=== PATIENT | female | born 1935 | race Caucasian/White ===

== ENCOUNTER 2016-10-27 14:45 | Emergency (ER) | payer BC, MEDICARE, OTHER ==
[~2016-10-27 14:45] MED LIST: DIAZ5 PO
[2016-10-27 14:55] VITALS: BP 166/74; PULSE 83; RESP 20; TEMP 98.5; O2SAT 97
--- NOTE | 2016-10-27 15:23 | PD ---
HPI Chief Complaint: Chest Pain Time Seen by Provider: 15:09 Travel History International Travel<30 days: No Contact w/Intl Traveler<30days: No Traveled to known affect area: No History of Present Illness HPI This patient complains of chest pain. She's had intermittent spells for the last 2 days. Last 2-3 minutes and resolves. It is not exertional. Location is middle of the sternum rating toward his shoulder. He reports she had a heart catheterization 7 months ago in [place] and follows with Dr. Posadas regularly. She does not have any stents. Symptom severity is moderate. No alleviating factors. PFSH Past Medical History Anxiety: Yes Diminished Hearing: No Immunizations Current: Yes Menopausal: Yes Social History Alcohol Use: Yes (SOCAIL/WEEKENDS) Tobacco Use: No Substance Use: No Allergies-Medications (Allergen,Severity, Reaction): Coded Allergies: No Known Allergies (Unverified , 10/27/16) Reported Meds & Prescriptions Reported Meds & Active Scripts Active No Active Prescriptions or Reported Medications Review of Systems General / Constitutional: No: Fever Eyes: No: Visual changes HENT: No: Headaches Cardiovascular: Positive: Chest Pain or Discomfort Respiratory: No: Shortness of Breath Gastrointestinal: No: Abdominal Pain Genitourinary: No: Dysuria Musculoskeletal: No: Pain Skin: No Rash Neurologic: No: Weakness Psychiatric: No: Depression Endocrine: No: Polydipsia Hematologic/Lymphatic: No: Easy Bruising Physical Exam Narrative GENERAL: Well-nourished, well-developed patient in no apparent distress. SKIN: Focused skin assessment reveals no rash and nodules. Skin is Warm and dry. HEAD: Atraumatic. Normocephalic. EYES: Pupils equal and round. No scleral icterus. No injection or drainage. ENT: No nasal bleeding or discharge. Mucous membranes pink and moist. NECK: Trachea midline. No JVD. CARDIOVASCULAR: Regular rate and rhythm. No murmur appreciated. RESPIRATORY: No accessory muscle use. Clear to auscultation. Breath sounds equal bilaterally. GASTROINTESTINAL: Abdomen soft, non-tender, nondistended. Hepatic and splenic margins not palpable. MUSCULOSKELETAL: No obvious deformities. No clubbing. No cyanosis. No edema. NEUROLOGICAL: Awake and alert. No obvious cranial nerve deficits. Motor grossly within normal limits. Normal speech. PSYCHIATRIC: Appropriate mood and affect; insight and judgment normal. Data Data Last Documented VS Vital Signs Date Time Temp Pulse Resp B/P Pulse Ox O2 Delivery O2 Flow Rate FiO2 10/27/16 16:49 79 20 152/68 98 10/27/16 14:55 98.5 Orders Electrocardiogram (10/27/16 15:19) Basic Metabolic Panel (Bmp) (10/27/16 15:19) Ckmb (Isoenzyme) Profile (10/27/16 15:) Complete Blood Count With Diff (10/27/16:) Prothrombin Time / Inr (Pt) (10/27/16 15:) Act Partial Throm Time (Ptt) (10/27/16 15:) Troponin I (10/27/16:) Chest, Single Ap (10/27/16:) Ecg Monitoring (10/27/16:) Iv Access Insert/Monitor (10/27/16:) Oximetry (10/27/16 15:) Sodium Chloride 0.9% Flush (Ns Flush) (10/27/16 15:30) CKMB (10/27/16 15:25) CKMB% (10/27/16 15:25) Labs Laboratory Tests Test 10/27/16 15:25 White Blood Count 8.6 TH/MM3 Red Blood Count 4.57 MIL/MM3 Hemoglobin 13.6 GM/DL Hematocrit 40.7 % Mean Corpuscular Volume 89.1 FL Mean Corpuscular Hemoglobin 29.9 PG Mean Corpuscular Hemoglobin 33.5 % Concent Red Cell Distribution Width 13.6 % Platelet Count 521 TH/MM3 Mean Platelet Volume 10.6 FL Neutrophils (%) (Auto) 74.5 % Lymphocytes (%) (Auto) 16.6 % Monocytes (%) (Auto) 5.5 % Eosinophils (%) (Auto) 2.3 % Basophils (%) (Auto) 1.1 % Neutrophils # (Auto) 6.4 TH/MM3 Lymphocytes # (Auto) 1.4 TH/MM3 Monocytes # (Auto) 0.5 TH/MM3 Eosinophils # (Auto) 0.2 TH/MM3 Basophils # (Auto) 0.1 TH/MM3 CBC Comment AUTO DIFF Differential Comment FINAL DIFF MANUAL Platelet Estimate HIGH Platelet Morphology Comment ENLARGED Prothrombin Time 11.5 SEC Prothromb Time International 1.0 RATIO Ratio Activated Partial 27.1 SEC Thromboplast Time Sodium Level 141 MEQ/L Potassium Level 4.2 MEQ/L Chloride Level 105 MEQ/L Carbon Dioxide Level 29.9 MEQ/L Anion Gap 6 MEQ/L Blood Urea Nitrogen 18 MG/DL Creatinine 0.75 MG/DL Estimat Glomerular Filtration 75 ML/MIN Rate Random Glucose 110 MG/DL Calcium Level 8.7 MG/DL Total Creatine Kinase 113 U/L Creatine Kinase MB 3.4 NG/ML Troponin I LESS THAN 0.02 NG/ML MDM Medical Decision Making Medical Screen Exam Complete: Yes Emergency Medical Condition: Yes Medical Record Reviewed: Yes Differential Diagnosis Differential diagnosis includes IL, angina, pericarditis, pleurisy, GERD, anxiety. Narrative Course I have reviewed the patient's electronic medical record. IV placed I reviewed the EKG which shows sinus rhythm with no ST elevation I reviewed the chest x-ray which is normal Extended cardiac monitoring shows sinus rhythm without ectopy CBC is normal Metabolic profile is normal CK is normal Troponin is normal Coagulation studies are normal Issues pain is very atypical and definitely seems noncardiac. 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 Posadas. He agrees and does not think she would benefit from hospitalization. He recommends discharge home and will see her in the office next week. She will call them Sunday morning for follow- up. Should she have recurrence or worsening I advised her to return. Diagnosis Primary Impression: Non-cardiac chest pain Additional Instructions: The patient was advised to follow up with their physician and return if they worsen. Follow-up with home economics extension worker Med/Other Pt SpecificInfo: Other Scripts No Active Prescriptions or Reported Meds Disposition: DISCHARGE HOME Condition: Stable Vinod Chandler MD October 27, 2016 15:23
[2016-10-27 15:26] VITALS: O2SAT 97
[2016-10-27] MEDS ORDERED: SODIUM CHLORIDE 0.9% FLUSH 10 ML FLUSH IVF PRN (15:30)
[2016-10-27 15:38] LABS: AUTOMATED NEUTROPHIL # 6.4 TH/MM3 (1.8-7.7); BASOPHIL # 0.1 TH/MM3 (0-0.2); BASOPHIL % 1.1 % (0.0-2.0); EOSINOPHIL # 0.2 TH/MM3 (0-0.4); EOSINOPHIL % 2.3 % (0.0-4.0); HEMATOCRIT 40.7 % (35.0-46.0); LYMPH % 16.6 % (9.0-44.0); LYMPHOCYTE # 1.4 TH/MM3 (1.0-4.8); MEAN CELL VOLUME 89.1 FL (80.0-100.0); MEAN CORPUSCULAR HEMOGLOBIN 29.9 PG (27.0-34.0); MEAN CORPUSCULAR HGB CONC 33.5 % (32.0-36.0); MONO % 5.5 % (0.0-8.0); NEUT % 74.5 % (16.0-70.0); PLATELET COUNT 521 TH/MM3 (150-450); RED BLOOD COUNT 4.57 MIL/MM3 (4.00-5.30); RED CELL DISTRIBUTION WIDTH 13.6 % (11.6-17.2); WHITE BLOOD COUNT 8.6 TH/MM3 (4.0-11.0)
[2016-10-27 15:43] LABS: HEMO FLAGS AUTO DIFF
[2016-10-27 15:52] LABS: CHLORIDE 105 MEQ/L (98-107); POTASSIUM 4.2 MEQ/L (3.5-5.1); SODIUM (NA) 141 MEQ/L (136-145)
--- NOTE | 2016-10-27 15:52 | RADHPO ---
EXAM DATE/TIME: 10/27/2016 15:45 [facility] COMPARISON: CHEST SINGLE AP, October 31, 2014, 17:09. INDICATIONS : Chest pain. MEDICAL HISTORY : None. SURGICAL HISTORY : None. ENCOUNTER: Initial ACUITY: 2 days PAIN SCORE: 4/10 LOCATION: Bilateral chest FINDINGS: A single view of the chest demonstrates the lungs to be symmetrically aerated without evidence of mas s, infiltrate or effusion. The cardiomediastinal contours are unremarkable. Osseous structures are intact. CONCLUSION: No acute disease. Garcia Farrell MD FACR on October 27, 2016 at 15:50 Board Certified Radiologist. This report was verified electronically.
[2016-10-27 15:56] VITALS: BP 108/59; PULSE 72; RESP 18; O2SAT 97
[2016-10-27 15:56] LABS: ANION GAP 6 MEQ/L (5-15); APTT (PATIENT) 27.1 SEC (24.3-30.1); BICARBONATE 29.9 MEQ/L (21.0-32.0); BLOOD UREA NITROGEN 18 MG/DL (7-18); PROTHROMBIN TIME - PATIENT 11.5 SEC (9.8-11.6)
[2016-10-27 15:59] LABS: GLOMERULAR FILTRATION RATE 75 ML/MIN (>89)
[2016-10-27 16:02] LABS: CREATINE KINASE 113 U/L (26-192)
[2016-10-27 16:14] LABS: CKMB 3.4 NG/ML (0.5-3.6)
[2016-10-27 16:29] LABS: PLATELET ESTIMATE SMEAR HIGH (NORMAL); PLATELET MORPHOLOGY ENLARGED (NORMAL); SCAN/DIFF FINAL DIFF MANUAL
[2016-10-27 16:49] VITALS: BP 152/68; PULSE 79; RESP 20; O2SAT 98
[2016-10-27 18:06] VITALS: BP 176/84; PULSE 74; RESP 20; O2SAT 96
--- NOTE | 2016-10-28 13:52 | EKG ---
Date Performed: 10/27/2016 Time Performed: 14:47:06 PTAGE: 81 years EKG: Sinus rhythm Possible left atrial abnormality Leftward axis Lateral ST-T changes are nonspecific Since previous t racing, no significant change noted Borderline ECG PREVIOUS TRACING : 10/31/2014 16.55 DOCTOR: Katie Valenzuela Interpretating Date/Time 10/28/2016 13:51:32
== END 2016-10-27 18:13 | disposition home or self-care (01) ==
LOC: PHED 14:45
DX: R07.89 Other chest pain (principal); R94.31 Abnormal electrocardiogram [ECG] [EKG]; Z86.59 Personal history of other mental and behavioral disorders
CPT/HCPCS: 71010; 80048; 82550; 82552; 84484; 85007; 85027; 85610; 85730; 93005

== ENCOUNTER 2017-03-23 08:39 | Inpatient (IN) | payer MEDICARE ==
[2017-03-23] VITALS (7 sets, daily range): BP systolic 113–126; BP diastolic 56–59; PULSE 92–102; RESP 15–24; TEMP 98.6–100.6; O2SAT 92–100
[~2017-03-23] VITALS: Ht 162.6 cm; Wt 66.2 kg
[2017-03-23] MEDS ORDERED: SODIUM CHLORIDE 0.9% FLUSH 10 ML FLUSH IVF PRN (09:00)
[2017-03-23 09:25] LABS: AUTOMATED NEUTROPHIL # 8.1 TH/MM3 (1.8-7.7); BASOPHIL # 0.1 TH/MM3 (0-0.2); BASOPHIL % 0.7 % (0.0-2.0); EOSINOPHIL % 0.1 % (0.0-4.0); HEMATOCRIT 45.1 % (35.0-46.0); HEMO FLAGS DIFF FINAL; LYMPH % 4.7 % (9.0-44.0); LYMPHOCYTE # 0.4 TH/MM3 (1.0-4.8); MEAN CELL VOLUME 88.8 FL (80.0-100.0); MEAN CORPUSCULAR HEMOGLOBIN 31.5 PG (27.0-34.0); MEAN CORPUSCULAR HGB CONC 35.5 % (32.0-36.0); MONO % 2.5 % (0.0-8.0); PLATELET COUNT 296 TH/MM3 (150-450); RED BLOOD COUNT 5.08 MIL/MM3 (4.00-5.30); RED CELL DISTRIBUTION WIDTH 14.4 % (11.6-17.2); WHITE BLOOD COUNT 8.8 TH/MM3 (4.0-11.0)
[2017-03-23 09:33] LABS: APTT (PATIENT) 31.7 SEC (24.3-30.1); INTERNATIONAL NORMALIZED RATIO 1.2 RATIO; PROTHROMBIN TIME - PATIENT 13.4 SEC (9.8-11.6)
--- NOTE | 2017-03-23 09:42 | RADRPT ---
EXAM DATE/TIME: 03/23/2017 09:28 [facility] COMPARISON: No previous studies available for comparison. INDICATIONS : Headache and weakness. RADIATION DOSE: 32.81 CTDIvol (mGy) MEDICAL HISTORY : None SURGICAL HISTORY : None. ENCOUNTER: Initial ACUITY: 1 day PAIN SCALE: 0/10 LOCATION: cranial TECHNIQUE: Multiple contiguous axial images were obtained of the head. Using automated exposure control and adj ustment of the mA and/or kV according to patient size, radiation dose was kept as low as reasonably a chievable to obtain optimal diagnostic quality images. DICOM format image data is available electro nically for review and comparison. FINDINGS: CEREBRUM: The ventricles are normal for age. No evidence of midline shift, mass lesion, hemorrhage or acute in farction. No extra-axial fluid collections are seen. POSTERIOR FOSSA: The cerebellum and brainstem are intact. The 4th ventricle is midline. The cerebellopontine angle i s unremarkable. EXTRACRANIAL: The visualized portion of the orbits is intact. SKULL: The calvaria is intact. No evidence of skull fracture. CONCLUSION: Normal examination. Jorge Reynaga MD on March 23, 2017 at 9:38 Board Certified Radiologist. This report was verified electronically.
[2017-03-23] MEDS ORDERED: ASPI81CH CHEW (09:51)
[2017-03-23] MEDS ORDERED: HYDR500C PO (09:51)
[2017-03-23 10:09] LABS: BICARBONATE 22.3 MEQ/L (21.0-32.0); CALCIUM-PROTEIN CORRECTED 7.9 MG/DL (8.5-10.1); TOTAL BILIRUBIN ADULT 0.6 MG/DL (0.2-1.0)
[2017-03-23 10:14] LABS: POTASSIUM 2.8 MEQ/L (3.5-5.1)
[2017-03-23 10:30] LABS: CKMB 13.3 NG/ML (0.5-3.6)
--- NOTE | 2017-03-23 10:39 | RADRPT ---
EXAM DATE/TIME: 03/23/2017 09:54 [facility] COMPARISON: CHEST SINGLE AP, October 27, 2016, 15:45. INDICATIONS : Shortness of breath. MEDICAL HISTORY : None. SURGICAL HISTORY : None. ENCOUNTER: Initial ACUITY: 1 day PAIN SCORE: 0/10 LOCATION: Bilateral chest FINDINGS: A single view of the chest demonstrates the lungs to be symmetrically aerated without evidence of mas s, infiltrate or effusion. The cardiomediastinal contours are unremarkable. Osseous structures are intact. CONCLUSION: 1. No acute cardiopulmonary disease. Elgin Guthrie MD on March 23, 2017 at 10:38 Board Certified Radiologist. This report was verified electronically.
--- NOTE | 2017-03-23 10:45 | PD ---
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 The patient denies any pain. She states that she feels generalized weakness worse in her legs and in her arms. She was sent here reportedly to rule out TIA. Patient denies any fevers, chills. She states that she felt really sweaty on Sunday and it progressed until today. There is no shortness of breath. There is no nausea vomiting diarrhea. PFSH Past Medical History Anxiety: Yes Diminished Hearing: No Immunizations Current: Yes ?: Not Menopausal: Yes Past Surgical History Surgical History: No Previous Surgery Social History Alcohol Use: Yes (SOCAIL/WEEKENDS) Tobacco Use: No Substance Use: No Allergies-Medications (Allergen,Severity, Reaction): Coded Allergies: No Known Allergies (Unverified , 10/27/16) Reported Meds & Prescriptions Reported Meds & Active Scripts Active Reported Aspirin 81 Mg Chew 81 Mg CHEW DAILY Hydrea (Hydroxyurea) 500 Mg Cap 500 Mg PO BID Review of Systems Except as stated in HPI: all other systems reviewed are Neg General / Constitutional: No: Fever, Chills HENT: No: Headaches, Lightheadedness, Neck Pain Cardiovascular: No: Chest Pain or Discomfort, Palpitations Respiratory: No: Cough, Shortness of Breath Gastrointestinal: No: Nausea, Vomiting, Abdominal Pain Genitourinary: No: Frequency, Dysuria Musculoskeletal: No: Weakness, Pain Neurologic: Positive: Weakness, No: Headache, Change in Mentation, Incontinence Physical Exam Narrative GENERAL: Well developed well-nourished female in no acute distress. SKIN: Focused skin assessment warm/dry. HEAD: Atraumatic. Normocephalic. EYES: No scleral icterus. No injection or drainage. ENT: No nasal bleeding or discharge. Mucous membranes pink and moist. NECK: Trachea midline. Supple. CARDIOVASCULAR: Regular rate and rhythm. No murmur appreciated. RESPIRATORY: No accessory muscle use. Clear to auscultation. Breath sounds equal bilaterally. GASTROINTESTINAL: Abdomen soft, non-tender, nondistended. Hepatic and splenic margins not palpable. MUSCULOSKELETAL: No obvious deformities. No clubbing. No cyanosis. No edema. NEUROLOGICAL: Awake and slight confusion. No obvious cranial nerve deficits. Motor grossly within normal limits. Normal speech. Patient states that she feels weaker in her legs and in her arms. She is moving them equally and is able to lift him up off the bed. Data Data Last Documented VS Vital Signs Date Time Temp Pulse Resp B/P (MAP) Pulse Ox O2 Delivery O2 Flow Rate FiO2 03/23/17 09:05 96 Room Air 03/23/17 08:48 99.7 101 24 120/59 (79) Orders Orders Prothrombin Time / Inr (Pt) (03/23/17 08:56) Act Partial Throm Time (Ptt) (03/23/17 08:56) Complete Blood Count With Diff (03/23/17 08:56) Comprehensive Metabolic Panel (03/23/17 08:56) Creatine Kinase (Cpk) (03/23/17 08:56) Troponin I (03/23/17 08:56) Urinalysis - C+S If Indicated (03/23/17 08:56) Ct Brain W/O Iv Contrast(Rout) (03/23/17 08:56) Chest, Single Ap (03/23/17 08:56) Ecg Monitoring (03/23/17 08:56) Iv Access Insert/Monitor (03/23/17 08:56) Oximetry (03/23/17 08:56) Sodium Chloride 0.9% Flush (Ns Flush) (03/23/17 09:00) Influenzae A/B Antigen (03/23/17 08:56) CKMB (03/23/17 09:00) CKMB% (03/23/17 09:00) Ns + Kcl 40 Meq Inj (Ns + Kcl 40 Meq Inj (03/23/17 10:45) Labs Laboratory Tests Test 03/23/17 09:00 03/23/17 10:30 White Blood Count 8.8 TH/MM3 Red Blood Count 5.08 MIL/MM3 Hemoglobin 16.0 GM/DL Hematocrit 45.1 % Mean Corpuscular Volume 88.8 FL Mean Corpuscular Hemoglobin 31.5 PG Mean Corpuscular Hemoglobin Concent 35.5 % Red Cell Distribution Width 14.4 % Platelet Count 296 TH/MM3 Mean Platelet Volume 9.7 FL Neutrophils (%) (Auto) 92.0 % Lymphocytes (%) (Auto) 4.7 % Monocytes (%) (Auto) 2.5 % Eosinophils (%) (Auto) 0.1 % Basophils (%) (Auto) 0.7 % Neutrophils # (Auto) 8.1 TH/MM3 Lymphocytes # (Auto) 0.4 TH/MM3 Monocytes # (Auto) 0.2 TH/MM3 Eosinophils # (Auto) 0.0 TH/MM3 Basophils # (Auto) 0.1 TH/MM3 CBC Comment DIFF FINAL Differential Comment Prothrombin Time 13.4 SEC Prothromb Time International Ratio 1.2 RATIO Activated Partial Thromboplast Time 31.7 SEC Blood Urea Nitrogen 15 MG/DL Creatinine 0.86 MG/DL Random Glucose 104 MG/DL Total Protein 5.0 GM/DL Albumin 2.6 GM/DL Calcium Level 6.8 MG/DL Alkaline Phosphatase 44 U/L Aspartate Amino Transf (AST/SGOT) 46 U/L Alanine Aminotransferase (ALT/SGPT) 22 U/L Total Bilirubin 0.6 MG/DL Sodium Level 135 MEQ/L Potassium Level 2.8 MEQ/L Chloride Level 103 MEQ/L Carbon Dioxide Level 22.3 MEQ/L Anion Gap 10 MEQ/L Estimat Glomerular Filtration Rate 64 ML/MIN Protein Corrected Calcium 7.9 MG/DL Total Creatine Kinase 1236 U/L Creatine Kinase MB 13.3 NG/ML Creatine Kinase MB % 1.1 % Troponin I 0.05 NG/ML MDM Medical Decision Making Medical Screen Exam Complete: Yes Emergency Medical Condition: Yes Differential Diagnosis Metabolic derangement versus TIA versus infection Narrative Course 81-year-old female presents with diaphoresis and weakness 3 days. The patient has a potassium of 2.8. She also has an elevated CK of 1200. Her protein corrected calcium is 7.9. Given all these metabolic arrangement, patient will meet inpatient criteria. She's been started on normal saline with 40 mEq of potassium chloride at 1 25 cc per hour. Case was discussed with Dr. Nathan Berg, [facility] who agrees with the full admission. Diagnosis Primary Impression: Hypokalemia Additional Impressions: Weakness Hypocalcemia Rhabdomyolysis rhabdomyolysis Ray Lala MD Mar 23, 2017 10:45
[2017-03-23 11:00] LABS: BACTERIA, URINE MOD /hpf; BLOOD, URINE MOD (NEG); COMMENT (UR) CATH-CULTURE IND; CULTURE IF INDICATED CATH CULTURE IND; GLUCOSE,URINE NEG (NEG); HYALINE CAST, URINE 10 /lpf (RARE); KETONE, URINE 40 mg/dL (NEG); MUCUS URINE FEW /lpf (OCC); NITRITE,URINE NEG (NEG); PH, URINE 5.5 (5.0-8.5); SQUAMOUS EPITHELIAL CELL URINE 1 /hpf (0-5); URINE COLOR YELLOW (YELLW/STRAW)
[2017-03-23] MEDS ORDERED: NALOXONE HCL 0.4 MG/ML AMP IV PUSH PRN (11:00)
[2017-03-23] MEDS ORDERED: ACETAMINOPHEN 325 MG TAB PO PRN (11:00)
[2017-03-23] MEDS ORDERED: SODIUM CHLORIDE 0.9% FLUSH 10 ML FLUSH IV FLUSH PRN (11:00)
[2017-03-23] MEDS: NS + KCL 40 MEQ INJ 1,000 ML IV SCH ×3 (11:07→23:06)
[2017-03-23] MEDS ORDERED: ASPIRIN 81 MG CHEW TAB CHEW SCH (12:00)
[2017-03-23] MEDS ORDERED: cefTRIAXone INJ 1,000 MG in SODIUM CHLORIDE 0.9% INJ 100 ML IV ONE (12:45)
[2017-03-23] MEDS ORDERED: ASPIRIN EC 81 MG TABEC PO ONE (16:45)
--- NOTE | 2017-03-23 16:55 | HHI.HP ---
[facility] Non[facility]Staff Admission Diagnosis Hypokalemia, rhabdomyolysis, hypocalcemia, weakness, Diagnoses: Chief Complaint: Weakness Travel History International Travel<30 Days: No Contact w/Intl Traveler <30 Da: No Traveled to Known Affected Are: No History of Present Illness The patient is a 81-year-old female with a past medical history of A. fib and bone marrow cancer who is presenting to the hospital with weakness. She says on Sunday she had a follow-up appointment with her veterinary poultry inspector. She mentioned that she had episodes of her left eye vision being obstructed by something that looked like a nicolas cloud at times. She was referred to an eye doctor was concerned for a TIA and recommended the patient follow up with her design printer balloon. The patient did follow up with her oncologist who recommended changing her from a baby aspirin to a full strength aspirin. He also increased the frequency of her hydroxyurea. Starting on Sunday she developed symptoms of weakness. She said she has been having the shakes. She says her legs feel like iron. She has noticed tremors in her upper extremities which she has not had before. She has been sweating profusely. She had an episode of nausea and vomiting. She says she had a fever of 103. She denied any chest pain or shortness of breath. She said she was having difficulty dressing herself. She did state that she fell down because she was so weak. She says she did not hit her head. She said it took a lot for her to get back up. Her daughter was concerned and called the fire department. Review of Systems Except as stated in HPI: all other systems reviewed are Neg Past Family Social History Past Medical History Atrial fibrillation Bone marrow cancer Varicose veins Allergies: Coded Allergies: No Known Allergies (Unverified , 10/27/16) Active Ordered Medications Current Medications Medications (Trade) Dose Ordered Sig/David Route Start Time Stop Time Status Last Admin (NS Flush) 2 ml UNSCH PRN IVF 03/23/17 09:00 03/23/17 11:07 Potassium Chloride/Sodium Chloride 1,000 ml @ 125 mls/hr Q8H IV 10/6/17 10:45 03/23/17 11:07 (Hydrea) 500 mg BID PO 03/23/17 21:00 (NS Flush) 2 ml BID IV FLUSH 03/23/17 21:00 (Tylenol) 650 mg Q4H PRN PO 03/23/17 11:00 (Tylenol) 650 mg Q6H PRN PO 03/23/17 11:00 (Narcan Inj) 0.4 mg UNSCH PRN IV PUSH 03/23/17 11:00 (Eugenia-Colace) 1 tab BID PO 03/23/17 21:00 Ceftriaxone Sodium 1000 mg/ Sodium Chloride 100 ml @ 200 mls/hr Q24H IV 03/24/17 12:00 UNV (Ecotrin Ec) 243 mg ONCE ONCE PO 03/23/17 16:45 03/23/17 16:46 UNV (Ecotrin Ec) 325 mg DAILY PO 03/24/17 09:00 UNV Family History The patient denies pertinent family history Social History The patient does not smoke. She drinks beer socially. Physical Exam Vital Signs Vital Signs Date Time Temp Pulse Resp B/P (MAP) Pulse Ox O2 Delivery O2 Flow Rate FiO2 03/23/17 16:00 98.6 101 16 113/56 (75) 92 03/23/17 14:50 03/23/17 14:15 99.1 97 17 118/59 (78) 95 03/23/17 11:00 99 22 124/58 (80) 94 Room Air 03/23/17 09:05 96 Room Air 03/23/17 08:55 96 Room Air 03/23/17 08:48 99.7 101 24 120/59 (79) 100 Physical Exam GENERAL: This is a well-nourished, well-developed patient, in no apparent distress. SKIN: No rashes, ecchymoses or lesions. Cool and dry. HEAD: Atraumatic. Normocephalic. No temporal or scalp tenderness. EYES: Pupils equal round and reactive. Extraocular motions intact. No scleral icterus. No injection or drainage. ENT: Nose without bleeding, purulent drainage or septal hematoma. Throat without erythema, tonsillar hypertrophy or exudate. Uvula midline. Airway patent. NECK: Trachea midline. No JVD or lymphadenopathy. Supple, nontender, no meningeal signs. CARDIOVASCULAR: Regular rate and rhythm without murmurs, gallops, or rubs. RESPIRATORY: Clear to auscultation. Breath sounds equal bilaterally. No wheezes , rales, or rhonchi. GASTROINTESTINAL: Abdomen soft, non-tender, nondistended. No hepato-splenomegaly , or palpable masses. No guarding. MUSCULOSKELETAL: Extremities without clubbing, cyanosis, or edema. Right calf tender to palpation. NEUROLOGICAL: Awake and alert. Cranial nerves II through XII intact. Motor and sensory grossly within normal limits. Five out of 5 muscle strength in all muscle groups. Normal speech. PSYCH: Slightly anxious. Laboratory Laboratory Tests Test 03/23/17 09:00 03/23/17 10:30 03/23/17 12:30 White Blood Count 8.8 Red Blood Count 5.08 Hemoglobin 16.0 Hematocrit 45.1 Mean Corpuscular Volume 88.8 Mean Corpuscular Hemoglobin 31.5 Mean Corpuscular Hemoglobin Concent 35.5 Red Cell Distribution Width 14.4 Platelet Count 296 Mean Platelet Volume 9.7 Neutrophils (%) (Auto) 92.0 Lymphocytes (%) (Auto) 4.7 Monocytes (%) (Auto) 2.5 Eosinophils (%) (Auto) 0.1 Basophils (%) (Auto) 0.7 Neutrophils # (Auto) 8.1 Lymphocytes # (Auto) 0.4 Monocytes # (Auto) 0.2 Eosinophils # (Auto) 0.0 Basophils # (Auto) 0.1 CBC Comment DIFF FINAL Differential Comment Prothrombin Time 13.4 Prothromb Time International Ratio 1.2 Activated Partial Thromboplast Time 31.7 Blood Urea Nitrogen 15 Creatinine 0.86 Random Glucose 104 Total Protein 5.0 Albumin 2.6 Calcium Level 6.8 Alkaline Phosphatase 44 Aspartate Amino Transf (AST/SGOT) 46 Alanine Aminotransferase (ALT/SGPT) 22 Total Bilirubin 0.6 Sodium Level 135 Potassium Level 2.8 Chloride Level 103 Carbon Dioxide Level 22.3 Anion Gap 10 Estimat Glomerular Filtration Rate 64 Protein Corrected Calcium 7.9 Total Creatine Kinase 1236 Creatine Kinase MB 13.3 Creatine Kinase MB % 1.1 Troponin I 0.05 0.04 Urine Color YELLOW Urine Turbidity HAZY Urine pH 5.5 Urine Specific [place] 1.019 Urine Protein 30 Urine Glucose (UA) NEG Urine Ketones 40 Urine Occult Blood MOD Urine Nitrite NEG Urine Bilirubin NEG Urine Urobilinogen LESS THAN 2.0 Urine Leukocyte Esterase LARGE Urine RBC 9 Urine WBC 67 Urine WBC Clumps RARE Urine Squamous Epithelial Cells 1 Urine Amorphous Sediment RARE Urine Bacteria MOD Urine Hyaline Casts 10 Urine Mucus FEW Microscopic Urinalysis Comment CATH-CULTURE IND Date/Time Source Procedure Growth Status 03/23/17 09:00 Nasal Aspirate Influenza Types A,B Antigen (REBECCA) - Final NEGATIVE FOR FLU A AND B ANTIGEN.... Complete 03/23/17 10:30 Urine Catheterized Urine Urine Culture Pending Received Result Diagram: 03/23/1789903/23/17899 Imaging Last Impressions Head CT 03/23/17855 Signed Impressions: Service Date/Time: Thursday, March 23, 2017 09:28 - CONCLUSION: Normal examination. Jorge Reynaga MD Chest X-Ray 03/23/17855 Signed Impressions: Service Date/Time: Thursday, March 23, 2017 09:54 - CONCLUSION: 1. No acute cardiopulmonary disease. Elgin Guthrie MD Capeda VTE Risk Assessment Caprini VTE Risk Assessment: Mod/High Risk (score >= 2) Caprini Risk Assessment Model Point Value = 1 Point Value = 2 Point Value = 3 Point Value = 5 Age 41-60 Minor surgery BMI > 25 kg/m2 Swollen legs Varicose veins or History of unexplained or recurrent spontaneous Oral contraceptives or hormone replacement Sepsis (< 1 month) Serious lung disease, including pneumonia (< 1 month) Abnormal pulmonary function Acute myocardial infarction Congestive heart failure (< 1 month) History of inflammatory bowel disease Medical patient at bed rest Age 61-74 Arthroscopic surgery Major open surgery (> 45 min) Laparoscopic surgery (> 45 min) Malignancy Confined to bed (> 72 hours) Immobilizing plaster cast Central venous access Age >= 75 History of VTE Family history of VTE Factor V Leiden Prothrombin [id number] Lupus anticoagulant Anticardiolipin antibodies Elevated serum homocysteine Heparin-induced thrombocytopenia Other congenital or acquired thrombophilia Stroke (< 1 month) Elective arthroplasty Hip, pelvis, or leg fracture Acute spinal cord injury (< 1 month) Prophylaxis Regimen Total Risk Factor Score Risk Level Prophylaxis Regimen 0-1 Low Early ambulation 2 Moderate Order ONE of the following: *Sequential Compression Device (SCD) *Heparin 5000 units SQ BID 3-4 Higher Order ONE of the following medications: *Heparin 5000 units SQ TID *Enoxaparin/Lovenox 40 mg SQ daily (WT < 150 kg, CrCl > 30 mL/min) *Enoxaparin/Lovenox 30 mg SQ daily (WT < 150 kg, CrCl > 10-29 mL/min) *Enoxaparin/Lovenox 30 mg SQ BID (WT < 150 kg, CrCl > 30 mL/min) AND/OR *Sequential Compression Device (SCD) 5 or more Highest Order ONE of the following medications: *Heparin 5000 units SQ TID (Preferred with Epidurals) *Enoxaparin/Lovenox 40 mg SQ daily (WT < 150 kg, CrCl > 30 mL/min) *Enoxaparin/Lovenox 30 mg SQ daily (WT < 150 kg, CrCl > 10-29 mL/min) *Enoxaparin/Lovenox 30 mg SQ BID (WT < 150 kg, CrCl > 30 mL/min) AND *Sequential Compression Device (SCD) Assessment and Plan Assessment and Plan Weakness/ hypokalemia/ rhabdomyolysis/ UTI The patient endorses significant lower extremity weakness along with a new tremor. She did have a potassium level of 2.8 on admission. She also had an elevated CPK level. CT of the brain was unremarkable. She was found to have a likely UTI. - Check a magnesium, phosphorus, TSH and vitamin B12 level. - PT and OT. - IV fluids with potassium chloride. - Follow BMP and replete electrolytes as needed. - Neuro checks. - Trend CPK level. - Monitor on telemetry. - Continue IV ceftriaxone and follow urine culture. - Blood cultures 2. Right calf pain Noted on examination. - Ultrasound of the right lower extremity to rule out DVT pending. 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 She said that she is on the hydroxyurea but was told that she would not from her cancer. - Continue hydroxyurea. - Outpatient follow-up. PPx: Lovenox Code Status Full Discussed Condition With Pt, nurse, Dr. Lala Physician Certification 2 Midnight Certification Type: Admission for Inpatient Services Order for Inpatient Services The services are ordered in accordance with Medicare regulations or non- Medicare payer requirements, as applicable. In the case of services not specified as inpatient-only, they are appropriately provided as inpatient services in accordance with the 2-midnight benchmark. Estimated LOS (days): 2 days is the estimated time the patient will need to remain in the hospital, assuming treatment plan goals are met and no additional complications. Post-Hospital Plan: Not yet determined Nathan Berg DO Mar 23, 2017 16:55
[2017-03-23 17:28] LABS: BICARBONATE 22.7 MEQ/L (21.0-32.0); POTASSIUM 3.4 MEQ/L (3.5-5.1)
--- NOTE | 2017-03-23 19:14 | RADRPT ---
EXAM DATE/TIME: 03/23/2017 18:43 [facility] COMPARISON: No previous studies available for comparison. INDICATIONS : Right leg swelling. MEDICAL HISTORY : Gastroesophageal reflux disease. Arthritis. Glasses. Dentures. Irregular heartbeat. Anxiety. SURGICAL HISTORY : None. ENCOUNTER: Initial ACUITY: 4 - 6 days PAIN SCORE: 3/10 LOCATION: Right leg. TECHNIQUE: Venous ultrasound of the leg was performed from the inguinal ligament to the proximal calf. Real-dinorah e, color Doppler and spectral tracing, compression and augmentation techniques were used. FINDINGS: There is normal compressibility of the deep venous system from the inguinal region to the proximal ca lf. No echogenic clot is seen in the lumen of the common femoral, femoral, popliteal, and posterior tibial veins. There is a normal response of the venous system to proximal and distal augmentation an d respiration. CONCLUSION: Normal examination. Emmanuel Vallejo MD on March 23, 2017 at 19:12 Board Certified Radiologist. This report was verified electronically.
[2017-03-23] MEDS: DOCUSATE SODIUM 50 MG/SENNA 8.6 MG TAB PO SCH (23:01)
[2017-03-23] MEDS: HYDROXYUREA 500 MG CAP PO SCH (23:05)
[2017-03-23] MEDS: SODIUM CHLORIDE 0.9% FLUSH 10 ML FLUSH IV FLUSH SCH (23:06)
[2017-03-23] MEDS: ACETAMINOPHEN 325 MG TAB PO PRN (23:29)
[2017-03-24] VITALS (12 sets, daily range): BP systolic 107–177; BP diastolic 52–98; PULSE 80–126; RESP 15–21; TEMP 96.9–100.5; O2SAT 93–97
[2017-03-24 04:29] LABS: AUTOMATED NEUTROPHIL # 5.7 TH/MM3 (1.8-7.7); EOSINOPHIL % 0.1 % (0.0-4.0); HEMO FLAGS DIFF FINAL; LYMPH % 9.2 % (9.0-44.0); LYMPHOCYTE # 0.6 TH/MM3 (1.0-4.8); MEAN CELL VOLUME 88.8 FL (80.0-100.0); MEAN CORPUSCULAR HEMOGLOBIN 31.4 PG (27.0-34.0); MEAN CORPUSCULAR HGB CONC 35.3 % (32.0-36.0); NEUT % 88.7 % (16.0-70.0); PLATELET COUNT 197 TH/MM3 (150-450); RED BLOOD COUNT 4.61 MIL/MM3 (4.00-5.30); RED CELL DISTRIBUTION WIDTH 14.9 % (11.6-17.2); WHITE BLOOD COUNT 6.4 TH/MM3 (4.0-11.0)
[2017-03-24] MEDS ORDERED: POTASSIUM CHLORIDE 25 MEQ EFFERVESCENT TAB PO ONE (04:45)
[2017-03-24] MEDS ORDERED: LORazepam 0.5 MG TAB PO ONE (04:45)
[2017-03-24 04:59] LABS: ANION GAP 7 MEQ/L (5-15); AST (GOT) 66 U/L (15-37); BICARBONATE 22.6 MEQ/L (21.0-32.0); BLOOD UREA NITROGEN 19 MG/DL (7-18); CHLORIDE 105 MEQ/L (98-107); GLOMERULAR FILTRATION RATE 66 ML/MIN (>89); POTASSIUM 3.9 MEQ/L (3.5-5.1); SODIUM (NA) 135 MEQ/L (136-145)
[2017-03-24 05:14] LABS: ALKALINE PHOSPHATASE 52 U/L (45-117); ALT (GPT) 31 U/L (10-53); CREATINE KINASE 1593 U/L (26-192); TOTAL BILIRUBIN ADULT 0.6 MG/DL (0.2-1.0)
--- NOTE | 2017-03-24 05:15 | EKG ---
Date Performed: 03/23/2017 Time Performed: 13:37:52 PTAGE: 81 years EKG: SINUS TACHYCARDIA WITH OCCASIONAL SUPRAVENTRICULAR PREMATURE COMPLEXES POSSIBLE LEFT ATRIAL ENLARGEMENT BORDERLINE LEFT AXIS DEVIATION MINIMAL ST DEPRESSION ABNORMAL RHYTHM ECG INTERPRETATION BASED ON A DEFAULT AGE OF 40 YEARS PREVIOUS TRACING : 03/23/2017 08.53 DOCTOR: Mann Roberts Interpretating Date/Time 03/24/2017 05:08:14
--- NOTE | 2017-03-24 05:26 | EKG ---
Date Performed: 03/23/2017 Time Performed: 08:53:14 PTAGE: 81 years EKG: SINUS TACHYCARDIA POSSIBLE LEFT ATRIAL ENLARGEMENT MARKED LEFT AXIS DEVIATION POSSIBLE RIGH T VENTRICULAR CONDUCTION DELAY MODERATE ST DEPRESSION ABNORMAL ECG NO PREVIOUS TRACING DOCTOR: Mann Roberts Interpretating Date/Time 03/24/2017 05:16:25
[2017-03-24 05:34] LABS: CKMB 6.7 NG/ML (0.5-3.6)
[2017-03-24] MEDS: ACETAMINOPHEN 325 MG TAB PO PRN (06:14)
[2017-03-24] MEDS: DOCUSATE SODIUM 50 MG/SENNA 8.6 MG TAB PO SCH ×2 (08:08→20:17)
[2017-03-24] MEDS: ASPIRIN EC 325 MG TABEC PO SCH (08:08)
[2017-03-24] MEDS: SODIUM CHLORIDE 0.9% FLUSH 10 ML FLUSH IV FLUSH SCH ×2 (08:11→20:18)
[2017-03-24] MEDS: HYDROXYUREA 500 MG CAP PO SCH ×2 (08:11→20:18)
[2017-03-24] MEDS: SODIUM CHLOR 0.9% 1000 ML INJ 1,000 ML IV SCH ×3 (09:00→16:27)
--- NOTE | 2017-03-24 10:26 | HHI.PR ---
Subjective Remarks The patient said her IV came out last night and there was a lot of blood and she was very nervous about it. She says she received a dose of anxiety medicine and it worked great for her. She says her shakiness has stopped. She states that she has some pain in her buttocks. She denies any pain on urination. Discussed with nursing. Objective Vitals Vital Signs Date Time Temp Pulse Resp B/P (MAP) Pulse Ox O2 Delivery O2 Flow Rate FiO2 03/24/17 08:00 99.7 104 20 107/52 (70) 97 03/24/17 04:47 97 03/24/17 04:29 98.2 126 20 177/98 (124) 03/24/17 04:00 100.5 03/24/17 04:00 98.2 125 21 177/98 (124) 97 03/24/17 00:00 97.5 80 15 108/55 (72) 95 03/23/17 20:00 100.6 92 15 126/58 (80) 93 03/23/17 16:00 98.6 101 16 113/56 (75) 92 03/23/17 15:00 102 03/23/17 14:50 03/23/17 14:15 99.1 97 17 118/59 (78) 95 03/23/17 11:00 99 22 124/58 (80) 94 Room Air I/O 03/23/17 03/23/17 03/23/17 03/24/17 03/24/17 03/24/17 06:59 14:59 22:59 06:59 14:59 22:59 Intake Total 515 ml 240 ml 120 ml Output Total 250 ml Balance 265 ml 240 ml 120 ml Intake Oral 515 ml 240 ml 120 ml Output Urine Total 250 ml # Voids 1 3 # Bowel Movements 3 Result Diagram: 03/24/1740403/24/17404 Imaging Last Impressions Head CT 03/23/17855 Signed Impressions: Service Date/Time: Thursday, March 23, 2017 09:28 - CONCLUSION: Normal examination. Jorge Reynaga MD Chest X-Ray 03/23/17855 Signed Impressions: Service Date/Time: Thursday, March 23, 2017 09:54 - CONCLUSION: 1. No acute cardiopulmonary disease. Elgin Guthrie MD Lower Extremity Ultrasound 03/23/17 0000 Signed Impressions: Service Date/Time: Thursday, March 23, 2017 18:43 - CONCLUSION: Normal examination. Emmanuel Vallejo MD Objective Remarks GENERAL: This is a well-nourished, well-developed patient, in no apparent distress. SKIN: No rashes, ecchymoses or lesions. Cool and dry. HEAD: Atraumatic. Normocephalic. No temporal or scalp tenderness. EYES: Pupils equal round and reactive. Extraocular motions intact. No scleral icterus. No injection or drainage. ENT: Nose without bleeding, purulent drainage or septal hematoma. Throat without erythema, tonsillar hypertrophy or exudate. Uvula midline. Airway patent. NECK: Trachea midline. No JVD or lymphadenopathy. Supple, nontender, no meningeal signs. No carotid bruits appreciated. CARDIOVASCULAR: Regular rate and rhythm without murmurs, gallops, or rubs. RESPIRATORY: Clear to auscultation. Breath sounds equal bilaterally. No wheezes , rales, or rhonchi. GASTROINTESTINAL: Abdomen soft, non-tender, nondistended. No hepato-splenomegaly , or palpable masses. No guarding. MUSCULOSKELETAL: Extremities without clubbing, cyanosis, or edema. Right calf tender to palpation. NEUROLOGICAL: Awake and alert. Cranial nerves II through XII intact. Motor and sensory grossly within normal limits. Five out of 5 muscle strength in all muscle groups. Normal speech. PSYCH: Slightly anxious. Medications and IVs Current Medications Medications (Trade) Dose Ordered Sig/David Route Start Time Stop Time Status Last Admin (NS Flush) 2 ml UNSCH PRN IVF 03/23/17 09:00 03/23/17 11:07 (Hydrea) 500 mg BID PO 03/23/17 21:00 03/24/17 08:11 (NS Flush) 2 ml BID IV FLUSH 03/23/17 21:00 03/23/17 23:06 (Tylenol) 650 mg Q4H PRN PO 03/23/17 11:00 03/24/17 06:14 (Tylenol) 650 mg Q6H PRN PO 03/23/17 11:00 (Narcan Inj) 0.4 mg UNSCH PRN IV PUSH 03/23/17 11:00 (Eugenia-Colace) 1 tab BID PO 03/23/17 21:00 03/24/17 08:08 Ceftriaxone Sodium 1000 mg/ Sodium Chloride 100 ml @ 200 mls/hr Q24H IV 03/24/17 12:00 (Ecotrin Ec) 325 mg DAILY PO 03/24/17 09:00 03/24/17 08:08 Sodium Chloride 1,000 ml @ 150 mls/hr Q6H40M IV 03/24/17 09:00 03/24/17 09:00 A/P Assessment and Plan Weakness/ hypokalemia/ rhabdomyolysis/ UTI The patient endorses significant lower extremity weakness along with a new tremor. She did have a potassium level of 2.8 on admission. She also had an elevated CPK level. CT of the brain was unremarkable. She was found to have a likely UTI. - PT and OT. - IV fluids. - Follow BMP and replete electrolytes as needed. - Neuro checks. - Trend CPK level. Increasing. - Monitor on telemetry. - Continue IV ceftriaxone and follow urine culture. - Blood cultures 2. Vision changes The patient says she had a cloudy spot on her left eye. She went to an eye doctor who she says was concerned about a TIA. CT head unremarkable. The patient 's symptoms have resolved. - check brain MRI, carotid US and echo. Right calf pain Noted on examination. Ultrasound of the right lower extremity to rule out DVT negative. - seems resolved. 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 She said that she is on the hydroxyurea but was told that she would not from her cancer. - Continue hydroxyurea. - Outpatient follow-up. PPx: Lovenox Discharge Planning Awaiting further workup Nathan Berg DO Mar 24, 2017 10:25
[2017-03-24] MEDS ORDERED: LORazepam 0.5 MG TAB PO PRN (10:30)
[2017-03-24] MEDS ORDERED: cefTRIAXone INJ 1,000 MG in SODIUM CHLORIDE 0.9% INJ 100 ML IV SCH (12:00)
--- NOTE | 2017-03-24 12:26 | RADRPT ---
EXAM DATE/TIME: 03/24/2017 11:35 [facility] COMPARISON: No previous studies available for comparison. INDICATIONS : CVA. Left eye vision loss. MEDICAL HISTORY : Carcinoma, bone. A-fib. SURGICAL HISTORY : None. ENCOUNTER: Initial ACUITY: 2 day PAIN SCORE: 0/10 LOCATION: cranial TECHNIQUE: Multiplanar, multisequence MRI of the brain was performed without contrast. FINDINGS: CEREBRUM: The ventricles are normal for age. No evidence of midline shift, mass lesion, hemorrhage or acute in farction. No extraaxial fluid collections are seen. The pituitary gland and suprasellar cistern are normal in configuration. WHITE MATTER: No significant signal abnormalities are seen in the white matter. POSTERIOR FOSSA: The cerebellum and brainstem are intact. The 4th ventricle is midline. The cerebellopontine angle is unremarkable. The cerebellar tonsils are normal in position. DIFFUSION IMAGING: No focal areas of restricted diffusion are seen. No evidence of acute infarction. EXTRACRANIAL: The visualized portions of the orbits and paranasal sinuses are unremarkable. CONCLUSION: 1. No acute intracranial abnormality identified. Mart Farrell MD on March 24, 2017 at 12:21 Board Certified Radiologist. This report was verified electronically.
--- NOTE | 2017-03-24 18:08 | RADRPT ---
EXAM DATE/TIME: 03/24/2017 10:31 [facility] COMPARISON: MRI BRAIN W/O CONTRAST, March 24, 2017, 11:35. INDICATIONS : Transient ischemic attack. MEDICAL HISTORY : Gastroesophageal reflux disease. Arthritis. Glasses. Dentures. Irregular heartbeat. Anxiety. SURGICAL HISTORY : None. ENCOUNTER: Initial ACUITY: 1 day PAIN SCORE: 0/10 LOCATION: Bilateral neck PEAK SYSTOLIC VELOCITIES (cm/sec): ICA/CCA RATIO: Right: 1.1 Left: 1.6 ICA: Right: 87.9 Left: 126.9 CCA: Right: 80.1 Left: 81.7 ECA: Right: 62.0 Left: 72.5 VERTEBRAL: Right: 47.9 antegrade Left: 44.6 antegrade Elevated flow velocities and ICA/CCA ratios have been found to correlate with increased degrees of vessel stenosis, calculated as percentage of diameter relative to a normal segment of distal ICA/CCA FINDINGS: RIGHT CAROTID: No significant stenosis is visualized. The waveforms are within normal limits. LEFT CAROTID: No significant stenosis is visualized. The waveforms are within normal limits. VERTEBRAL ARTERIES: Antegrade flow is seen in both vertebral arteries. MISCELLANEOUS: None. CONCLUSION: No evidence of flow-limiting carotid stenosis. Jorge Reynaga MD on March 24, 2017 at 18:04 Board Certified Radiologist. This report was verified electronically.
[2017-03-25] VITALS (11 sets, daily range): BP systolic 105–176; BP diastolic 52–76; PULSE 90–130; RESP 16–22; TEMP 96.9–102.3; O2SAT 93–99
[2017-03-25] MEDS: SODIUM CHLOR 0.9% 1000 ML INJ 1,000 ML IV SCH ×3 (04:25→16:08)
[2017-03-25 05:25] LABS: ALT (GPT) 34 U/L (10-53); ANION GAP 8 MEQ/L (5-15); AST (GOT) 71 U/L (15-37); BICARBONATE 19.8 MEQ/L (21.0-32.0); BLOOD UREA NITROGEN 13 MG/DL (7-18); CHLORIDE 106 MEQ/L (98-107); GLOMERULAR FILTRATION RATE 122 ML/MIN (>89); POTASSIUM 3.7 MEQ/L (3.5-5.1); SODIUM (NA) 134 MEQ/L (136-145)
[2017-03-25 05:50] LABS: ALKALINE PHOSPHATASE 46 U/L (45-117); CREATINE KINASE 1408 U/L (26-192); TOTAL BILIRUBIN ADULT 0.6 MG/DL (0.2-1.0)
[2017-03-25 06:12] LABS: CKMB 4.1 NG/ML (0.5-3.6)
[2017-03-25] MEDS: DOCUSATE SODIUM 50 MG/SENNA 8.6 MG TAB PO SCH ×2 (08:06→21:00)
[2017-03-25] MEDS: ASPIRIN EC 325 MG TABEC PO SCH (08:06)
[2017-03-25] MEDS: HYDROXYUREA 500 MG CAP PO SCH (08:06)
[2017-03-25] MEDS: SODIUM CHLORIDE 0.9% FLUSH 10 ML FLUSH IV FLUSH SCH ×2 (08:09→21:00)
[2017-03-25] MEDS ORDERED: Vancomycin Consult Pharmacy 1 EA OTHER PRN (09:15)
--- NOTE | 2017-03-25 09:38 | RADRPT ---
EXAM DATE/TIME: 03/25/2017 09:15 [facility] COMPARISON: CHEST SINGLE AP, March 23, 2017, 9:54. INDICATIONS : Evaluate for pneumonia MEDICAL HISTORY : Carcinoma, bone. A-fib. SURGICAL HISTORY : None. ENCOUNTER: Subsequent ACUITY: 3 days PAIN SCORE: 0/10 LOCATION: chest FINDINGS: The heart is mildly enlarged. The lungs demonstrate chronic interstitial changes but are otherwise cl ear. Visualized bony structures are grossly intact. CONCLUSION: 1. Chronic appearing interstitial changes. Stable examination compared to previous dated 03/23/17. Mart Farrell MD on March 25, 2017 at 9:36 Board Certified Radiologist. This report was verified electronically.
[2017-03-25] MEDS: PIPERACIL-TAZO 4.5 GM PREMIX 100 ML IV SCH ×2 (09:43→16:07)
[2017-03-25] MEDS ORDERED: RESP: ALBUTEROL 2.5 MG/IPRATROPIUM 0.5 MG NEB (PRN) NEB (09:45)
[2017-03-25] MEDS ORDERED: RESP: ALBUTEROL 2.5 MG/IPRATROPIUM 0.5 MG NEB (SCH) NEB ONE (09:45)
--- NOTE | 2017-03-25 09:56 | HHI.PR ---
Subjective Remarks The patient continues to feel weak. She endorsed some throat pain for the past few days. She does endorse some shortness of breath. She says she has an inhaler at home. Discussed with nursing at the bedside. Objective Vitals Vital Signs Date Time Temp Pulse Resp B/P (MAP) Pulse Ox O2 Delivery O2 Flow Rate FiO2 03/25/17 08:00 102.0 122 16 141/64 (89) 95 03/25/17 04:00 96.9 103 20 134/62 (86) 95 03/25/17 00:45 100.6 03/25/17 00:00 101.1 105 20 135/63 (87) 93 03/24/17 20:00 96.9 96 20 116/57 (76) 93 03/24/17 19:58 95 21 03/24/17 19:55 113 03/24/17 16:00 99.1 90 18 134/87 (103) 95 03/24/17 12:00 99.1 101 18 135/63 (87) 96 03/24/17 10:44 94 21 I/O 03/24/17 03/24/17 03/24/17 03/25/17 03/25/17 03/25/17 07:00 15:00 23:00 07:00 15:00 23:00 Intake Total 240 ml 120 ml 2654 ml 1437 ml Output Total 900 ml Balance 240 ml 120 ml 1754 ml 1437 ml Intake Oral 240 ml 120 ml 990 ml 240 ml IV Total 1664 ml 1197 ml Output Urine Total 900 ml # Voids 3 1 1 # Bowel Movements 3 0 Result Diagram: 03/24/17 0405 03/25/17 0420 Imaging Last Impressions Carotid Artery Ultrasound 03/24/17 0000 Signed Impressions: Service Date/Time: Friday, March 24, 2017 10:31 - CONCLUSION: No evidence of flow-limiting carotid stenosis. Jorge Reynaga MD Brain MRI 03/24/17 0000 Signed Impressions: Service Date/Time: Friday, March 24, 2017 11:35 - CONCLUSION: 1. No acute intracranial abnormality identified. Mart Farrell MD Head CT 03/23/17 0856 Signed Impressions: Service Date/Time: Thursday, March 23, 2017 09:28 - CONCLUSION: Normal examination. Jorge Reynaga MD Chest X-Ray 03/23/17 0856 Signed Impressions: Service Date/Time: Thursday, March 23, 2017 09:54 - CONCLUSION: 1. No acute cardiopulmonary disease. Elgin Guthrie MD Lower Extremity Ultrasound 03/23/17 0000 Signed Impressions: Service Date/Time: Thursday, March 23, 2017 18:43 - CONCLUSION: Normal examination. Emmanuel Vallejo MD Objective Remarks GENERAL: This is a well-nourished, well-developed patient, in no apparent distress. SKIN: No rashes, ecchymoses or lesions. Cool and dry. HEAD: Atraumatic. Normocephalic. No temporal or scalp tenderness. EYES: Pupils equal round and reactive. Extraocular motions intact. No scleral icterus. No injection or drainage. ENT: Nose without bleeding, purulent drainage or septal hematoma. Throat without erythema, tonsillar hypertrophy or exudate. Uvula midline. Airway patent. NECK: Trachea midline. No JVD or lymphadenopathy. Supple, nontender, no meningeal signs. No carotid bruits appreciated. CARDIOVASCULAR: Tachycardic without murmurs, gallops, or rubs. RESPIRATORY: Clear to auscultation. Breath sounds equal bilaterally. No wheezes , rales, or rhonchi. GASTROINTESTINAL: Abdomen soft, non-tender, nondistended. No hepato-splenomegaly , or palpable masses. No guarding. MUSCULOSKELETAL: Extremities without clubbing, cyanosis, or edema. Right calf tender to palpation. NEUROLOGICAL: Awake and alert. Cranial nerves II through XII intact. Motor and sensory grossly within normal limits. Five out of 5 muscle strength in all muscle groups. Normal speech. PSYCH: Slightly anxious. Medications and IVs Current Medications Medications (Trade) Dose Ordered Sig/David Route Start Time Stop Time Status Last Admin (NS Flush) 2 ml UNSCH PRN IVF 03/23/17 09:00 03/23/17 11:07 (NS Flush) 2 ml BID IV FLUSH 03/23/17 21:00 03/23/17 23:06 (Tylenol) 650 mg Q4H PRN PO 03/23/17 11:00 03/25/17 00:00 (Tylenol) 650 mg Q6H PRN PO 03/23/17 11:00 (Narcan Inj) 0.4 mg UNSCH PRN IV PUSH 03/23/17 11:00 (Eugenia-Colace) 1 tab BID PO 03/23/17 21:00 03/25/17 08:06 (Ecotrin Ec) 325 mg DAILY PO 03/24/17 09:00 03/25/17 08:06 Sodium Chloride 1,000 ml @ 100 mls/hr Q10H IV 03/24/17 09:00 03/25/17 04:25 Piperacillin Sod/ Tazobactam Sod 100 ml @ 200 mls/hr Q6H IV 03/25/17 10:00 03/25/17 09:43 Vancomycin HCl 900 mg/Sodium Chloride 259 ml @ 250 mls/hr Q12H IV 03/25/17 11:00 Pharmacy Profile Note 0 ml @ 0 mls/hr UNSCH PRN OTHER 03/25/17 09:15 (Xanax) 0.125 mg Q6H PRN PO 03/25/17 09:45 UNV (Duoneb Neb) 1 ampule Q2HR NEB PRN NEB 03/25/17 09:45 UNV (Duoneb Neb) 1 ampule ONCE ONCE NEB 03/25/17 09:45 03/25/17 09:46 UNV (Hydrea) 500 mg DAILY PO 03/26/17 09:00 UNV A/P Assessment and Plan Weakness/ hypokalemia/ rhabdomyolysis/ UTI The patient endorses significant lower extremity weakness along with a new tremor. She did have a potassium level of 2.8 on admission. She also had an elevated CPK level. CT of the brain was unremarkable. She was found to have a likely UTI. She recently had her hydroxyurea dose doubled, it's possible weakness is secondary to that. - PT and OT. - IV fluids. - Follow BMP and replete electrolytes as needed. - Neuro checks. - Trend CPK level. - Monitor on telemetry. - antibiotics. - Blood cultures 2. - decrease hydroxyurea dose back to 500 mg daily. - check ESR and CRP. FUO The pt has been spiking fevers. CXR unremarkable. - start vancomycin and Zosyn. - consult ID. - check blood cultures. Repeat UA. - echo pending. - rapid strep as pt complains of a sore throat. Vision changes/ Weakness The patient says she had a cloudy spot on her left eye. She went to an eye doctor who she says was concerned about a TIA. CT head unremarkable. The patient 's visual symptoms have resolved. She still has weakness. MRI brain and carotid US unremarkable. - check echo. - neuro consult requested. - PT/ OT. Right calf pain Noted on examination. Ultrasound of the right lower extremity to rule out DVT negative. - seems resolved. 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 She said that she is on the hydroxyurea but was told that she would not from her cancer. Her dose was recently doubled. - Continue hydroxyurea. Decrease to 500 mg daily. - Outpatient follow-up with oncology. Inpatient consult as needed. PPx: Lovenox Discharge Planning Awaiting further workup Nathan Berg DO Mar 25, 2017 09:56
[2017-03-25] MEDS ORDERED: BENZOCAINE-MENTHOL (SUGAR FREE) 15 MG-3.6 MG LOZENGE BUCCAL ONE (10:00)
[2017-03-25] MEDS ORDERED: BENZOCAINE-MENTHOL (SUGAR FREE) 15 MG-3.6 MG LOZENGE BUCCAL PRN (10:00)
[2017-03-25] MEDS ORDERED: PILL SPLITTER OTHER PRN (10:15)
[2017-03-25] MEDS ORDERED: VANCOMYCIN INJ 1,000 MG in SODIUM CHLOR 0.9% 250 ML INJ 250 ML IV ONE (10:30)
[2017-03-25] MEDS: ALPRAZolam 0.25 MG TAB PO PRN ×2 (11:14→18:44)
[2017-03-25 11:46] LABS: BACTERIA, URINE OCC /hpf; BLOOD, URINE MOD (NEG); COMMENT (UR) CULT NOT INDICATED; CULTURE IF INDICATED CULT NOT INDICATED; GLUCOSE,URINE NEG (NEG); KETONE, URINE 10 mg/dL (NEG); MUCUS URINE FEW /lpf (OCC); NITRITE,URINE NEG (NEG); SQUAMOUS EPITHELIAL CELL URINE <1 /hpf (0-5); URINE COLOR YELLOW (YELLW/STRAW)
[2017-03-25] MEDS: ACETAMINOPHEN 325 MG TAB PO PRN ×3 (11:46→19:47)
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
[2017-03-25 12:42] LABS: AUTOMATED NEUTROPHIL # 2.7 TH/MM3 (1.8-7.7); BASOPHIL % 0.3 % (0.0-2.0); EOSINOPHIL % 0.3 % (0.0-4.0); HEMATOCRIT 35.5 % (35.0-46.0); HEMO FLAGS DIFF FINAL; LYMPH % 11.7 % (9.0-44.0); LYMPHOCYTE # 0.4 TH/MM3 (1.0-4.8); MEAN CELL VOLUME 87.9 FL (80.0-100.0); MEAN CORPUSCULAR HEMOGLOBIN 30.9 PG (27.0-34.0); MEAN CORPUSCULAR HGB CONC 35.1 % (32.0-36.0); MONO % 3.5 % (0.0-8.0); NEUT % 84.2 % (16.0-70.0); PLATELET COUNT 121 TH/MM3 (150-450); RED BLOOD COUNT 4.04 MIL/MM3 (4.00-5.30); RED CELL DISTRIBUTION WIDTH 14.5 % (11.6-17.2); WHITE BLOOD COUNT 3.3 TH/MM3 (4.0-11.0)
--- NOTE | 2017-03-25 16:12 | RADRPT ---
EXAM DATE/TIME: 03/25/2017 15:08 [facility] COMPARISON: No previous studies available for comparison. INDICATIONS : Left eye blurred vision. MEDICAL HISTORY : Carcinoma, bone. Afib SURGICAL HISTORY : None. ENCOUNTER: Initial ACUITY: 3 day PAIN SCORE: 0/10 LOCATION: cranial Please note a normal MRA of the brain does not entirely exclude the possibility of a small aneurysm, nor the possibility of distal intracranial vessel disease. TECHNIQUE: 3D time of flight MRA was performed. Source images, multiplanar STS MIP, and 3D volume MIP reconstru ctions were reviewed. FINDINGS: There is excellent visualization of the major intracranial arteries out to the second-order branch ve ssels. The posterior cerebral arteries arising fashion. There is slight asymmetric hypoplasia o f the right A1 segment of anterior cerebral artery. There is no evidence for aneurysm, vessel truncat ion or stenosis, and no evidence for vascular malformation. CONCLUSION: No acute [place] vascular findings. Jorge Reynaga MD on March 25, 2017 at 16:08 Board Certified Radiologist. This report was verified electronically.
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
[2017-03-25] MEDS: LEVOFLOXACIN 750 MG TAB PO SCH (17:32)
[2017-03-25] MEDS: NYSTAT/DIPHENHY/LIDO MOUTHWASH (Adult) 120ML SWISH-SWAL SCH ×2 (18:14→21:51)
[2017-03-25 20:56] LABS: RHEUMATOID FACTOR TRIGGER LESS THAN 10.0 IU/ML (0.0-14.9)
[2017-03-25] MEDS ORDERED: methylPREDNISolone SOD SUCC 125 MG/2 ML VIAL IV PUSH ONE (21:15)
[2017-03-25] MEDS ORDERED: IBUPROFEN 400 MG TAB PO ONE (21:15)
[2017-03-25] MEDS ORDERED: LORazepam 0.5 MG TAB PO ONE (21:15)
[2017-03-25] MEDS: PANTOPRAZOLE SOD 40 MG DELAYED RELEASE TAB PO SCH (22:01)
[2017-03-25] MEDS ORDERED: VANCOMYCIN INJ 1,000 MG in SODIUM CHLOR 0.9% 250 ML INJ 250 ML IV SCH (23:00)
--- NOTE | 2017-03-25 23:27 | RADRPT ---
EXAM DATE/TIME: 03/25/2017 22:01 [facility] COMPARISON: No previous studies available for comparison. INDICATIONS : Left leg swelling. MEDICAL HISTORY : Gastroesophageal reflux disease. Irregular heartbeat. Arthritis. SURGICAL HISTORY : None. ENCOUNTER: Initial ACUITY: 1 day PAIN SCORE: 0/10 LOCATION: Left leg. TECHNIQUE: Venous ultrasound of the leg was performed from the inguinal ligament to the proximal calf. Real-dinorah e, color Doppler and spectral tracing, compression and augmentation techniques were used. FINDINGS: There is normal compressibility of the deep venous system from the inguinal region to the proximal ca lf. No echogenic clot is seen in the lumen of the common femoral, femoral, popliteal, and posterior tibial veins. There is a normal response of the venous system to proximal and distal augmentation an d respiration. CONCLUSION: Normal examination. Jorge Reynaga MD on March 25, 2017 at 23:25 Board Certified Radiologist. This report was verified electronically.
[2017-03-26] MEDS ORDERED: IOHEXOL 350 MG/ML 10 ML VIAL (for RAD DIAG) IVCONTRAST ONE (01:51)
--- NOTE | 2017-03-26 02:07 | RADRPT ---
EXAM DATE/TIME: 03/26/2017 01:35 [place] COMPARISON: No previous studies available for comparison. INDICATIONS : Shortness of breath and fever. Evaluate for emboli. IV CONTRAST: 60 cc Omnipaque 350 (iohexol) IV RADIATION DOSE: 8.04 CTDIvol (mGy) MEDICAL HISTORY : Cardiovascular disease. Carcinoma, bone. SURGICAL HISTORY : None. ENCOUNTER: Initial ACUITY: 2 days PAIN SCALE: 0/10 LOCATION: chest TECHNIQUE: Volumetric scanning of the chest was performed using a pulmonary embolism protocol MIP images were re constructed. Using automated exposure control and adjustment of the mA and/or kV according to patien t size, radiation dose was kept as low as reasonably achievable to obtain optimal diagnostic quality images. DICOM format image data is available electronically for review and comparison. Follow-up recommendations for detected pulmonary nodules are based at a minimum on nodule size and pa tient risk factors according to Fleischner Society Guidelines. FINDINGS: PULMONARY ARTERIES: There are small filling defects in segmental and subsegmental branch vessels of upper and lower lobe pulmonary vessels on the left. LUNGS: There is mild bibasilar posterior lung atelectasis. PLEURAE: Small bilateral pleural effusions. MEDIASTINUM: Mild central mediastinal ashley enlargement with multiple small nodes most conspicuously in the paratr acheal, precarinal and AP window regions. These are nonspecific. Mild prominence of hilar ashley tissu e also noted. MUSCULOSKELETAL: Within normal limits for patient age. MISCELLANEOUS: The visualized upper abdominal organs demonstrate no acute abnormality. CONCLUSION: Relatively low volume pulmonary embolism. Mild bilateral dependent lung atelectasis and small effusions. Mild nonspecific prominence of hilar and mediastinal nodes. Jorge Reynaga MD on March 26, 2017 at 2:00 Board Certified Radiologist. This report was verified electronically.
[2017-03-26] MEDS ORDERED: ENOXAPARIN SODIUM 60 MG/0.6 ML SYRINGE SQ ONE (02:30)
--- NOTE | 2017-03-26 06:15 | HHI.PR ---
Review/Management Diagnosis/Plan: (1) TIA (transient ischemic attack) ICD Codes: G45.9 - Transient cerebral ischemic attack, unspecified Plan: possible retinal tia mra brain- normal recs inderal for tremor/anxiety 10mg bid if cleared by medical neuro stable afib- if she has it, would suggest OAC. 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 will follow serial exams once acute illness is resolved and watch for pd recs inderal 10-20 mg bid if ok with medical for tremor and anxiety (3) SIRS (systemic inflammatory response syndrome) ICD Codes: R65.10 - Systemic inflammatory response syndrome (SIRS) of non- infectious origin without acute organ dysfunction Status: Acute (4) Anxiety ICD Codes: F41.9 - Anxiety disorder, unspecified Status: Chronic (5) Tachycardia ICD Codes: R00.0 - Tachycardia, unspecified Status: Acute Subjective Subjective Comments No acute events reported No headache No chest pain No dyspnea Active Medications Current Medications Medications (Trade) Dose Ordered Sig/David Route Start Time Stop Time Status Last Admin (NS Flush) 2 ml UNSCH PRN IVF 03/23/17 09:00 03/23/17 11:07 (NS Flush) 2 ml BID IV FLUSH 03/23/17 21:00 03/23/17 23:06 (Tylenol) 650 mg Q4H PRN PO 03/23/17 11:00 03/25/17 19:47 (Tylenol) 650 mg Q6H PRN PO 03/23/17 11:00 (Narcan Inj) 0.4 mg UNSCH PRN IV PUSH 03/23/17 11:00 (Eugenia-Colace) 1 tab BID PO 03/23/17 21:00 03/25/17 08:06 (Ecotrin Ec) 325 mg DAILY PO 03/24/17 09:00 03/25/17 08:06 Sodium Chloride 1,000 ml @ 100 mls/hr Q10H IV 03/24/17 09:00 03/25/17 16:08 (Xanax) 0.125 mg Q6H PRN PO 03/25/17 09:45 03/25/17 18:44 (Duoneb Neb) 1 ampule Q2HR NEB PRN NEB 03/25/17 09:45 03/25/17 21:09 (Cepacol Extra Mario (Sugar Free)) 1 lozenge Q2HR PRN BUCCAL 03/25/17 10:00 (Pill Splitter) 1 ea UNSCH PRN OTHER 03/25/17 10:15 Miscellaneous Information SPECIFIC LAB TO BE DRAWN:VANCO TROUGH DATE TO... ONCE ONCE .XX 03/26/17 22:45 03/26/17 22:46 (Levaquin) 750 mg DAILY PO 03/25/17 17:00 03/25/17 17:32 (Magic Mouthwash Adult Liq) 5 ml QID SWISH-SWAL 03/25/17 18:00 03/25/17 21:51 (Protonix) 40 mg DAILY PO 03/25/17 21:15 03/25/17 22:01 Allergies Allergies Coded Allergies No Known Allergies (Unverified10/27/16) Review of Systems All other ROS: ROS reviewed as documented in chart Exam I&O / VS Vital Signs Date Time Temp Pulse Resp B/P (MAP) Pulse Ox O2 Delivery O2 Flow Rate FiO2 03/25/17 23:37 98.1 90 18 105/52 (69) 96 03/25/17 21:11 95 Nasal Cannula 2.00 03/25/17 20:58 102.3 130 20 139/68 (91) 99 03/25/17 20:00 102.0 125 22 176/76 (109) 03/25/17 19:23 118 03/25/17 16:00 97.5 91 16 115/56 (75) 97 03/25/17 12:00 102.0 112 16 142/69 (93) 95 03/25/17 08:00 102.0 122 16 141/64 (89) 95 General: Alert and Oriented Eye: Normal conjuctiva Respiratory: Non-labored respirations Cardiology: Other (tachy) Neurologic: Alert, Oriented, Normal sensory, CN II-XII intact, Normal DTR's Psychiatric: Cooperative, Appropriate mood & affect Exam Comments alert, ox 3, follows, eomi, face sym, ou 3-2mm, moderate anxiety, recognizes me from the office, dupont to gravity, +mild tiara high frequency postural and kinetic tremor, no significant rigidity in arms, msr sym, no clonus, planter flexor, gait not assessed 2/2 fall risk Objective Micro and Labs Laboratory Tests Test 03/25/17 11:07 03/25/17 12:18 03/25/17 20:13 Urine Color YELLOW Urine Turbidity HAZY Urine pH 5.0 Urine Specific [place] 1.019 Urine Protein 30 Urine Glucose (UA) NEG Urine Ketones 10 Urine Occult Blood MOD Urine Nitrite NEG Urine Bilirubin NEG Urine Urobilinogen LESS THAN 2.0 Urine Leukocyte Esterase NEG Urine RBC 5 Urine WBC 2 Urine Squamous Epithelial Cells <1 Urine Amorphous Sediment FEW Urine Bacteria OCC Urine Mucus FEW Microscopic Urinalysis Comment CULT NOT INDICATED White Blood Count 3.3 Red Blood Count 4.04 Hemoglobin 12.5 Hematocrit 35.5 Mean Corpuscular Volume 87.9 Mean Corpuscular Hemoglobin 30.9 Mean Corpuscular Hemoglobin Concent 35.1 Red Cell Distribution Width 14.5 Platelet Count 121 Mean Platelet Volume 11.2 Neutrophils (%) (Auto) 84.2 Lymphocytes (%) (Auto) 11.7 Monocytes (%) (Auto) 3.5 Eosinophils (%) (Auto) 0.3 Basophils (%) (Auto) 0.3 Neutrophils # (Auto) 2.7 Lymphocytes # (Auto) 0.4 Monocytes # (Auto) 0.1 Eosinophils # (Auto) 0.0 Basophils # (Auto) 0.0 CBC Comment DIFF FINAL Differential Comment Erythrocyte Sedimentation Rate 7 Rheumatoid Factor Screen NEGATIVE Rheumatoid Factor Titer Date/Time Source Procedure Growth Status 03/25/17 21:46 Blood Peripheral Aerobic Blood Culture Pending Received 03/25/17 21:46 Blood Peripheral Anaerobic Blood Culture Pending Received 03/25/17 10:40 Throat Group A Streptococcus Screen Pending Received 03/23/17 10:30 Urine Catheterized Urine Urine Culture - Final 10-50,000 CFU/ML MIXED GRAM POSITIVE ... Complete Problem Qualifiers (1) TIA (transient ischemic attack): Qualified Codes: G45.3 - Amaurosis fugax Angel Levy MD Mar 26, 2017 06:15
[2017-03-26 07:41] LABS: AUTOMATED NEUTROPHIL # 2.3 TH/MM3 (1.8-7.7); BASOPHIL % 0.1 % (0.0-2.0); HEMATOCRIT 35.9 % (35.0-46.0); HEMO FLAGS DIFF FINAL; LYMPH % 14.4 % (9.0-44.0); LYMPHOCYTE # 0.4 TH/MM3 (1.0-4.8); MEAN CELL VOLUME 87.5 FL (80.0-100.0); MEAN CORPUSCULAR HEMOGLOBIN 31.2 PG (27.0-34.0); MEAN CORPUSCULAR HGB CONC 35.6 % (32.0-36.0); MONO % 2.4 % (0.0-8.0); NEUT % 83.1 % (16.0-70.0); PLATELET COUNT 104 TH/MM3 (150-450); RED CELL DISTRIBUTION WIDTH 14.6 % (11.6-17.2); WHITE BLOOD COUNT 2.8 TH/MM3 (4.0-11.0)
[2017-03-26 08:00] VITALS: BP 109/58; PULSE 83; RESP 18; TEMP 96.3; O2SAT 100
[2017-03-26 08:14] LABS: BICARBONATE 20.7 MEQ/L (21.0-32.0); POTASSIUM 3.4 MEQ/L (3.5-5.1)
[2017-03-26 08:17] LABS: INDIRECT BILIRUBIN 0.3 MG/DL (0.0-0.8); TOTAL BILIRUBIN ADULT 0.6 MG/DL (0.2-1.0)
[2017-03-26 08:34] LABS: CKMB 4.7 NG/ML (0.5-3.6)
[2017-03-26] MEDS: DOCUSATE SODIUM 50 MG/SENNA 8.6 MG TAB PO SCH ×2 (08:34→20:28)
[2017-03-26] MEDS: SODIUM CHLOR 0.9% 1000 ML INJ 1,000 ML IV SCH (08:34)
[2017-03-26] MEDS: LEVOFLOXACIN 750 MG TAB PO SCH (08:34)
[2017-03-26] MEDS: PANTOPRAZOLE SOD 40 MG DELAYED RELEASE TAB PO SCH (08:34)
[2017-03-26] MEDS: NYSTAT/DIPHENHY/LIDO MOUTHWASH (Adult) 120ML SWISH-SWAL SCH ×4 (08:34→20:28)
[2017-03-26] MEDS: SODIUM CHLORIDE 0.9% FLUSH 10 ML FLUSH IV FLUSH SCH ×2 (08:34→20:29)
[2017-03-26] MEDS: ASPIRIN EC 325 MG TABEC PO SCH (08:34)
[2017-03-26] MEDS ORDERED: HYDROXYUREA 500 MG CAP PO SCH (09:00)
--- NOTE | 2017-03-26 11:24 | HHI.IDPN ---
Subjective Subjective Remarks is a very pleasant but anxious 81-year-old female with a past medical history of A. fib and ? 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 She says on Sunday she had a follow-up appointment with her occupational therapy specialist. She mentioned that she had episodes of her left eye vision being obstructed by something that looked like a nicolas cloud at times. She was referred to an eye doctor was concerned for a TIA and recommended the patient follow up with her timber hewer. The patient did follow up with her oncologist who recommended changing her from a baby aspirin to a full strength aspirin. He also increased the frequency of her hydroxyurea. Her symptoms of weakness continued to worsen and she started having shakes. She has noticed tremors in her upper extremities which she has not had before. She has been sweating profusely. She had an episode of nausea and vomiting. She says she had a fever of 103. She denied any chest pain or shortness of breath. She said she was having difficulty dressing herself. She did state that she fell down because she was so weak. She says she did not hit her head. She said it took a lot for her to get back up. Her daughter was concerned and called the fire department. She denies any fever. She denies any night sweats. She does report soreness in mouth with some difficulty swallowing. She denies any muscle aches. She denies any dysuria she denies any headache at present time. She reports h/o fall and being on floor for a long time. She denies any diarrhea. It appears based on chart review patient came in with h/o fever and subsequently had low grade fever. After Vanco and Zosyn IV started pt developed high grade fever and leucopenia and thrombocytopenia. 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 ID consulted for evaluation and Mment of fever of unknown origin and rhabdomyolysis. Overnight events reviewed Fevers 102 (x 4) in last 24 hours. clinically does not behave like infection. Comfortable sitting in a chair. No rash No diarrhea Antibiotics Levaquin Lines Line sites with no e.o infection Past Medical History reviewed Allergies: Coded Allergies: No Known Allergies (Unverified , 10/27/16) Objective . Vital Signs Date Time Temp Pulse Resp B/P (MAP) Pulse Ox O2 Delivery O2 Flow Rate FiO2 03/26/17 08:00 96.3 83 18 109/58 (75) 100 03/25/17 23:37 98.1 90 18 105/52 (69) 96 03/25/17 21:11 95 Nasal Cannula 2.00 03/25/17 20:58 102.3 130 20 139/68 (91) 99 03/25/17 20:00 102.0 125 22 176/76 (109) 03/25/17 19:23 118 03/25/17 16:00 97.5 91 16 115/56 (75) 97 03/25/17 12:00 102.0 112 16 142/69 (93) 95 . Laboratory Tests Test 03/25/17 12:18 03/26/17 06:48 White Blood Count 3.3 TH/MM3 2.8 TH/MM3 Red Blood Count 4.04 MIL/MM3 4.10 MIL/MM3 Hemoglobin 12.5 GM/DL 12.8 GM/DL Hematocrit 35.5 % 35.9 % Mean Corpuscular Volume 87.9 FL 87.5 FL Mean Corpuscular Hemoglobin 30.9 PG 31.2 PG Mean Corpuscular Hemoglobin Concent 35.1 % 35.6 % Red Cell Distribution Width 14.5 % 14.6 % Platelet Count 121 TH/MM3 104 TH/MM3 Mean Platelet Volume 11.2 FL 11.0 FL Neutrophils (%) (Auto) 84.2 % 83.1 % Lymphocytes (%) (Auto) 11.7 % 14.4 % Monocytes (%) (Auto) 3.5 % 2.4 % Eosinophils (%) (Auto) 0.3 % 0.0 % Basophils (%) (Auto) 0.3 % 0.1 % Neutrophils # (Auto) 2.7 TH/MM3 2.3 TH/MM3 Lymphocytes # (Auto) 0.4 TH/MM3 0.4 TH/MM3 Monocytes # (Auto) 0.1 TH/MM3 0.1 TH/MM3 Eosinophils # (Auto) 0.0 TH/MM3 0.0 TH/MM3 Basophils # (Auto) 0.0 TH/MM3 0.0 TH/MM3 CBC Comment DIFF FINAL DIFF FINAL Differential Comment Erythrocyte Sedimentation Rate 7 mm/hr Laboratory Tests Test 03/25/17 04:20 03/26/17 06:48 Blood Urea Nitrogen 13 MG/DL 10 MG/DL Creatinine 0.49 MG/DL 0.46 MG/DL Random Glucose 92 MG/DL 145 MG/DL Total Protein 4.8 GM/DL 4.6 GM/DL Albumin 2.4 GM/DL 2.2 GM/DL Calcium Level 7.8 MG/DL 7.7 MG/DL Alkaline Phosphatase 46 U/L 57 U/L Aspartate Amino Transf (AST/SGOT) 71 U/L 63 U/L Alanine Aminotransferase (ALT/SGPT) 34 U/L 37 U/L Total Bilirubin 0.6 MG/DL 0.6 MG/DL Sodium Level 134 MEQ/L 137 MEQ/L Potassium Level 3.7 MEQ/L 3.4 MEQ/L Chloride Level 106 MEQ/L 107 MEQ/L Carbon Dioxide Level 19.8 MEQ/L 20.7 MEQ/L Anion Gap 8 MEQ/L 9 MEQ/L Estimat Glomerular Filtration Rate 122 ML/MIN 131 ML/MIN Total Creatine Kinase 1408 U/L 940 U/L Creatine Kinase MB 4.1 NG/ML 4.7 NG/ML Creatine Kinase MB % 0.3 % 0.5 % C-Reactive Protein 16.00 MG/DL Magnesium Level 2.0 MG/DL Direct Bilirubin 0.3 MG/DL Indirect Bilirubin 0.3 MG/DL Microbiology Date/Time Source Procedure Growth Status 03/25/17 21:46 Blood Peripheral Aerobic Blood Culture - Preliminary NO GROWTH IN 1 DAY Resulted 03/25/17 21:46 Blood Peripheral Anaerobic Blood Culture - Preliminary NO GROWTH IN 1 DAY Resulted 03/25/17 21:42 Blood Peripheral Aerobic Blood Culture - Preliminary NO GROWTH IN 1 DAY Resulted 03/25/17 21:42 Blood Peripheral Anaerobic Blood Culture - Preliminary NO GROWTH IN 1 DAY Resulted 03/23/17 18:36 Blood Peripheral Aerobic Blood Culture - Preliminary NO GROWTH IN 3 DAYS Resulted 03/23/17 18:36 Blood Peripheral Anaerobic Blood Culture - Preliminary NO GROWTH IN 3 DAYS Resulted 03/23/17 18:32 Blood Peripheral Aerobic Blood Culture - Preliminary NO GROWTH IN 3 DAYS Resulted 03/23/17 18:32 Blood Peripheral Anaerobic Blood Culture - Preliminary NO GROWTH IN 3 DAYS Resulted 03/25/17 10:40 Throat Group A Streptococcus Screen Pending Received 03/25/17 10:40 Throat Group A Streptococcus Screen (REBECCA) - Final Complete Imaging Last Impressions Lower Extremity Ultrasound 03/25/17 0000 Signed Impressions: Service Date/Time: Saturday, March 25, 2017 22:01 - CONCLUSION: Normal examination. Jorge Reynaga MD Head Magnetic Resonance Angiography 03/25/17 0000 Signed Impressions: Service Date/Time: Saturday, March 25, 2017 15:08 - CONCLUSION: No acute [place] of Jar[place] vascular findings. Jorge Reynaga MD Chest X-Ray 03/25/17 0000 Signed Impressions: Service Date/Time: Saturday, March 25, 2017 09:15 - CONCLUSION: 1. Chronic appearing interstitial changes. Stable examination compared to previous dated 03/23/17. Mart Farrell MD CT Angiography 03/25/17 0000 Signed Impressions: Service Date/Time: Sunday, March 26, 2017 01:35 - CONCLUSION: Relatively low volume pulmonary embolism. Mild bilateral dependent lung atelectasis and small effusions. Mild nonspecific prominence of hilar and mediastinal nodes. Jorge Reynaga MD Carotid Artery Ultrasound 03/24/17 0000 Signed Impressions: Service Date/Time: Friday, March 24, 2017 10:31 - CONCLUSION: No evidence of flow-limiting carotid stenosis. Jorge Reynaga MD Brain MRI 03/24/17 Signed Impressions: Service Date/Time: Friday, March 24, 2017 11:35 - CONCLUSION: 1. No acute intracranial abnormality identified. Mart Farrell MD Head CT 03/23/17 0856 Signed Impressions: Service Date/Time: Thursday, March 23, 2017 09:28 - CONCLUSION: Normal examination. Jorge Reynaga MD Physical Exam GENERAL: This is a well-nourished, well-developed patient, in no apparent distress. SKIN: No rashes, ecchymoses or lesions. Cool and dry. HEAD: Atraumatic. Normocephalic. No temporal or scalp tenderness. EYES: Pupils equal round and reactive. Extraocular motions intact. No scleral icterus. No injection or drainage. ENT: Nose without bleeding, purulent drainage or septal hematoma. Throat without erythema, tonsillar hypertrophy or exudate. Uvula midline. Airway patent. No temporal tenderness. NECK: Trachea midline. Supple, nontender, no meningeal signs. CARDIOVASCULAR: Regular rate and rhythm without murmurs, gallops, or rubs. RESPIRATORY: Clear to auscultation. Breath sounds equal bilaterally. No wheezes , rales, or rhonchi. GASTROINTESTINAL: Abdomen soft, non-tender, nondistended. MUSCULOSKELETAL: Extremities without clubbing, cyanosis, or edema. No joint tenderness, effusion, or edema noted. No calf tenderness. Negative Homans sign bilaterally. NEUROLOGICAL: Awake and alert. Non focal. Speech at times slow. Psych cooperative IV line sites with no e.o infection. Assessment & Plan Remarks Fever possible sepsis on admission. Clinical picture s.o fever due to viral process on admission. Subsequently fever appears to be drug induced (antibiotics, hydroxyurea) Oral mucositis (antibiotics, hydroxyurea) Thrombocytopenia and Leucopenia (antibiotics, hydroxyurea) Elevated CRP: ? inflammatory processes (RA, Lupus,temporal arteritis) New small PE ? cause of fever although seems less likely Recs Continue oral levaquin. magic mouth wash for mucositis (fungal vs drug induced) Clinically does not behave like infectious process. d/w and if fevers do not resolve in next 24 hours will consider trial of steroids. Opthalm consult. Follow cultures Follow clinically. Delilah Salazar MD Mar 26, 2017 11:24
[2017-03-26 12:00] VITALS: BP 117/57; PULSE 88; RESP 20; TEMP 96.2; O2SAT 96
[2017-03-26] MEDS ORDERED: POTASSIUM CHLORIDE 25 MEQ EFFERVESCENT TAB PO ONE (12:15)
--- NOTE | 2017-03-26 12:19 | HHI.PR ---
Subjective Remarks The patient was working with occupational therapy. She denied any headaches or visual changes. She still endorsed weakness. Discussed with infectious disease. Objective Vitals Vital Signs Date Time Temp Pulse Resp B/P (MAP) Pulse Ox O2 Delivery O2 Flow Rate FiO2 03/26/17 08:00 96.3 83 18 109/58 (75) 100 03/25/17 23:37 98.1 90 18 105/52 (69) 96 03/25/17 21:11 95 Nasal Cannula 2.00 03/25/17 20:58 102.3 130 20 139/68 (91) 99 03/25/17 20:00 102.0 125 22 176/76 (109) 03/25/17 19:23 118 03/25/17 16:00 97.5 91 16 115/56 (75) 97 I/O 03/25/17 03/25/17 03/25/17 03/26/17 03/26/17 03/26/17 07:00 15:00 23:00 07:00 15:00 23:00 Intake Total 1437 ml 450 ml 2570 ml Balance 1437 ml 450 ml 2570 ml Intake Oral 240 ml 450 ml IV Total 1197 ml 2570 ml # Voids 1 4 3 # Bowel Movements 1 Result Diagram: 03/26/17 0648 03/26/17 0648 Imaging Last Impressions Lower Extremity Ultrasound 03/25/17 0000 Signed Impressions: Service Date/Time: Saturday, March 25, 2017 22:01 - CONCLUSION: Normal examination. Jorge Reynaga MD Head Magnetic Resonance Angiography 03/25/17 0000 Signed Impressions: Service Date/Time: Saturday, March 25, 2017 15:08 - CONCLUSION: No acute [place] of [place] vascular findings. Jorge Reynaga MD Chest X-Ray 03/25/17 0000 Signed Impressions: Service Date/Time: Saturday, March 25, 2017 09:15 - CONCLUSION: 1. Chronic appearing interstitial changes. Stable examination compared to previous dated 03/23/17. Mart Farrell MD CT Angiography 03/25/17 0000 Signed Impressions: Service Date/Time: Sunday, March 26, 2017 01:35 - CONCLUSION: Relatively low volume pulmonary embolism. Mild bilateral dependent lung atelectasis and small effusions. Mild nonspecific prominence of hilar and mediastinal nodes. Jorge Reynaga MD Carotid Artery Ultrasound 03/24/17 0000 Signed Impressions: Service Date/Time: Friday, March 24, 2017 10:31 - CONCLUSION: No evidence of flow-limiting carotid stenosis. Jorge Reynaga MD Brain MRI 03/24/17 0000 Signed Impressions: Service Date/Time: Friday, March 24, 2017 11:35 - CONCLUSION: 1. No acute intracranial abnormality identified. Mart Farrell MD Head CT 03/23/17 0856 Signed Impressions: Service Date/Time: Thursday, March 23, 2017 09:28 - CONCLUSION: Normal examination. Jorge Reynaga MD Objective Remarks GENERAL: This is a well-nourished, well-developed patient, in no apparent distress. SKIN: No rashes, ecchymoses or lesions. Cool and dry. HEAD: Atraumatic. Normocephalic. No temporal or scalp tenderness. EYES: Pupils equal round and reactive. Extraocular motions intact. No scleral icterus. No injection or drainage. ENT: Nose without bleeding, purulent drainage or septal hematoma. Throat without erythema, tonsillar hypertrophy or exudate. Uvula midline. Airway patent. NECK: Trachea midline. No JVD or lymphadenopathy. Supple, nontender, no meningeal signs. No carotid bruits appreciated. CARDIOVASCULAR: Regular rate and rhythm without murmurs, gallops, or rubs. RESPIRATORY: Clear to auscultation. Breath sounds equal bilaterally. No wheezes , rales, or rhonchi. GASTROINTESTINAL: Abdomen soft, non-tender, nondistended. No hepato-splenomegaly , or palpable masses. No guarding. MUSCULOSKELETAL: Extremities without clubbing, cyanosis, or edema. Right calf tender to palpation. NEUROLOGICAL: Awake and alert. Cranial nerves II through XII intact. Motor and sensory grossly within normal limits. Five out of 5 muscle strength in all muscle groups. Normal speech. PSYCH: Slightly anxious. Medications and IVs Current Medications Medications (Trade) Dose Ordered Sig/David Route Start Time Stop Time Status Last Admin (NS Flush) 2 ml UNSCH PRN IVF 03/23/17 09:00 03/23/17 11:07 (NS Flush) 2 ml BID IV FLUSH 03/23/17 21:00 03/26/17 08:34 (Tylenol) 650 mg Q4H PRN PO 03/23/17 11:00 03/25/17 19:47 (Tylenol) 650 mg Q6H PRN PO 03/23/17 11:00 (Narcan Inj) 0.4 mg UNSCH PRN IV PUSH 03/23/17 11:00 (Eugenia-Colace) 1 tab BID PO 03/23/17 21:00 03/26/17 08:34 (Ecotrin Ec) 325 mg DAILY PO 03/24/17 09:00 03/26/17 08:34 Sodium Chloride 1,000 ml @ 100 mls/hr Q10H IV 03/24/17 09:00 03/26/17 08:34 (Xanax) 0.125 mg Q6H PRN PO 03/25/17 09:45 03/25/17 18:44 (Duoneb Neb) 1 ampule Q2HR NEB PRN NEB 03/25/17 09:45 03/25/17 21:09 (Cepacol Extra Mario (Sugar Free)) 1 lozenge Q2HR PRN BUCCAL 03/25/17 10:00 (Pill Splitter) 1 ea UNSCH PRN OTHER 03/25/17 10:15 (Levaquin) 750 mg DAILY PO 03/25/17 17:00 03/26/17 08:34 (Magic Mouthwash Adult Liq) 5 ml QID SWISH-SWAL 03/25/17 18:00 03/26/17 08:34 (Protonix) 40 mg DAILY PO 03/25/17 21:15 03/26/17 08:34 (Lovenox Inj) 60 mg Q12H SQ 03/26/17 15:00 A/P Assessment and Plan Weakness/ hypokalemia/ rhabdomyolysis/ UTI The patient endorses significant lower extremity weakness along with a new tremor. She did have a potassium level of 2.8 on admission. She also had an elevated CPK level. CT of the brain was unremarkable. She was found to have a likely UTI. She recently had her hydroxyurea dose doubled, it's possible weakness is secondary to that. Questionable viral or rheumatologic etiology. - PT and OT. - IV fluids. - Follow BMP and replete electrolytes as needed. - Neuro checks. - Trend CPK level. Improving. - Monitor on telemetry. - antibiotics per ID. - Blood cultures 2. - decrease hydroxyurea dose back to 500 mg daily. - check LAURA. 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 - oncology consult pending. - follow CBC. FUO The pt has been spiking fevers. CXR unremarkable. ID consult appreciated. UA unremarkable. - Levaquin per ID. - echo pending. - s/p IVFs. PE Noted on CTA. - Lovenox started. - follow up with hematology. Vision changes/ Weakness The patient says she had a cloudy spot on her left eye. She went to an eye doctor who she says was concerned about a TIA. CT head unremarkable. The patient 's visual symptoms have resolved. She still has weakness. MRI brain and carotid US unremarkable. Neuro consult appreciated. - check echo. - neuro following. - PT/ OT. - continue ASA. - ophtho consult pending. 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 She said that she is on the hydroxyurea but was told that she would not from her cancer. Her dose was recently doubled. - Continue hydroxyurea. Decrease to 500 mg daily. - oncology consult pending. PPx: Lovenox Discharge Planning Awaiting further workup Nathan Berg DO Mar 26, 2017 12:19
[2017-03-26] MEDS: ENOXAPARIN SODIUM 60 MG/0.6 ML SYRINGE SQ SCH (15:00)
[2017-03-26 16:00] VITALS: BP 107/61; PULSE 86; RESP 16; TEMP 97.3; O2SAT 99
--- NOTE | 2017-03-26 17:35 | ECHRPT ---
Indication: cva/tia CONCLUSIONS Normal left ventricular size. Mild concentric left ventricular hypertrophy. The left ventricular systolic function is normal with an estimated ejection fraction in the range of 55-60%. Mitral annular calcification is present. Aortic valve sclerosis is present. The pulmonary valve is not well visualized. BP: 105 / 52 HR: 90 Rhythm: MEASUREMENTS (Male / Female) Normal Values Technical Quality:Technically difficult study 2D ECHO LV Diastolic Diameter PLAX 3.8 cm 4.2 - 5.9 / 3.9 - 5.3 cm LV Systolic Diameter PLAX 3.1 cm IVS Diastolic Thickness 1.2 cm 0.6 - 1.0 / 0.6 - 0.9 cm LVPW Diastolic Thickness 0.7 cm 0.6 - 1.0 / 0.6 - 0.9 cm LV Relative Wall Thickness 0.5 RV Internal Dim ED PLAX 1.9 cm LA Systolic Diameter LX 3.7 cm 3.0 - 4.0 / 2.7 - 3.8 cm M-MODE Aortic Root Diameter MM 2.8 cm AV Cusp Separation MM 1.6 cm DOPPLER Mitral E Point Velocity 72.6 cm/s Mitral A Point Velocity 94.3 cm/s Mitral E to A Ratio 0.8 TR Peak Velocity 262.0 cm/s TR Peak Gradient 27.5 mmHg FINDINGS LEFT VENTRICLE Normal left ventricular size. Mild concentric left ventricular hypertrophy. The left ventricular systolic function is normal with an estimated ejection fraction in the range of 55-60%. RIGHT VENTRICLE Normal right ventricular size and systolic function. LEFT ATRIUM The left atrial size is normal. RIGHT ATRIUM The right atrial size is normal. ATRIAL SEPTUM Normal atrial septal thickness without atrial level shunting by limited color doppler interrogation. AORTA The aortic root and proximal ascending aorta are normal in size on limited imaging. MITRAL VALVE Mitral annular calcification is present. AORTIC VALVE Aortic valve sclerosis is present. TRICUSPID VALVE Structurally normal tricuspid valve. No tricuspid valve stenosis or regurgitation. PULMONARY VALVE The pulmonary valve is not well visualized. VESSELS The inferior vena cava is normal in size. PERICARDIUM No pericardial effusion. Margarito Caro MD, FACC (Electronically Signed) Final Date:26 March 2017 17:34
[2017-03-26 18:31] LABS: TRANSFERRIN IRON PROFILE 125 MG/DL (200-360)
[2017-03-26 18:48] LABS: FERRITIN 2976 NG/ML (8-252)
[2017-03-26 20:00] VITALS: BP 131/65; PULSE 90; RESP 22; TEMP 96; O2SAT 98
--- NOTE | 2017-03-26 22:16 | MB ---
cc: VANESSA MARINELLI MD DATE OF CONSULTATION 03/26/2017 CHIEF COMPLAINTS 1. Pancytopenia. 2. Pulmonary embolism. HISTORY OF THE PRESENT ILLNESS Ms. Ochoa is a 81-year-old lady with a history of atrial fibrillation and myeloproliferative neoplasm who follows in clinic with Dr. Calvillo, who is admitted to the hospital on Thursday March 23, 2017 with weakness. She was found to have rhabdomyolysis with hypokalemia, hypocalcemia. She reports that her symptoms started on Sunday. On that day she noted that she was having some trouble with her vision including a nicolas cloud. She is referred to an eye doctor at [facility] who was concerned for a TIA and advised her to follow up urgently with her confectionery laboratory manager. She also saw her oncologist on Sunday. He recommended changing her from a baby aspirin to a full dose aspirin and increased her hydroxyurea dose at that time. She reported tremors, diaphoresis, nausea and vomiting and severe weakness including falls which prompted her presentation to the hospital. While in the hospital she was evaluated by infectious disease who noted possible urinary tract infection and she was started on Levaquin. There was also some concern for rheumatologic illness contributing to the weakness and elevated creatinine kinase. She was also evaluated by the neurology team who recommended consideration of Inderal for tremor. Lwer extremity ultrasound on March 23 with no evidence of DVT. Head CT from March 23 was normal with no evidence of acute intracranial process. Chest x-ray from 03/23 shows no acute cardiopulmonary disease. Carotid artery ultrasound from March 24 shows no evidence of flow-limiting cardiac stenosis. Brain MRI from March 24 shows no acute intracranial abnormality. Lower extremity ultrasound from March 25 was again a normal examination. MRI, MRA of the head from March 25 was with no acute findings. Chest x-ray from March 25 with chronic appearing interstitial changes and stable from prior. And CTA from March 25 shows low-volume pulmonary embolus, mild bilateral dependent lung atelectasis and small effusion. Mild nonspecific prominence of hilar and mediastinal lymph nodes. Laboratory studies reveal an ESR of 7. White blood cell count on the of 2.8, hemoglobin of 12.8 and a platelet count of 104,000 with an MCV of 87.5. Differential reveals a low lymphocyte count at 0.4. On admission from March 23 white blood cell count was 8.8, hemoglobin was 16 and platelet count was 296 with a neutrophil count of 8.1 and again a low absolute lymphocyte count of 0.4. Today she has a creatinine of 0.46, a total bili of 0.6, a direct bili of 0.3 and AST at 63 and ALT of 37. Creatinine kinase of 940, an alkaline phosphatase of 57. Vitamin B12 within normal limits at 637. TSH within normal limits at 0.493. PAST MEDICAL HISTORY 1. Atrial fibrillation. 2. Myeloproliferative neoplasm. SOCIAL HISTORY The patient denies tobacco use. She does drink occasionally in a social setting. She has children who live out of town and she has a close friend support system in this area. FAMILY HISTORY No family history of blood clot. ALLERGIES No known allergies. ROS: Negative except for those items mentioned in the HPI PHYSICAL EXAMINATION GENERAL: Frail lady in no distress, resting in bed. HEAD: Normocephalic, atraumatic HEENT: Eyes with no scleral icterus. NECK: Supple with no lymphadenopathy. CARDIOVASCULAR: Regular rate and rhythm with no murmurs. RESPIRATORY: Clear to auscultation bilaterally. GASTROINTESTINAL: Soft, nontender, nondistended with bowel sounds present. SKIN: With bruising on arms from venipunctures. NEUROLOGIC: No focal deficits PSYCH: Alert, oriented to person, place and time. Poor recent and remote memory. ASSESSMENT/PLAN 1. Pulmonary embolism. Agree with Lovenox therapy at this time. In the outpatient setting we will discuss with the patient warfarin versus DOAC. Unable to differentiate if this is a provoked versus unprovoked clot. 2. History of myeloproliferative neoplasm, uncertain of which type. She follows with Dr. Calvillo closely. Tomorrow we will call office to obtain records including type of bone marrow disorder, past doses of hydrea, past laboratory values and baseline counts. Agree with discontinuation of Hydrea at this time. 3. Pancytopenia. Given normal counts on admission and progression to pancytopenia, feel that this is influenced by Hydrea especially with recent increase in dose. Agree with discontinuation and continue to follow counts. Other contributing causing could include viral illness which would also cause other abnormalities include elevated CK. We will order ferritin, iron profile, haptoglobin and pathology for peripheral blood smear. Vanessa N. Marinelli, MD AYAAN/KK /5:48 PM /9:42 PM MTDGauri
[2017-03-26 22:20] VITALS: PULSE 91
[2017-03-26] MEDS ORDERED: PHARMACY ORDERED LAB ONE (22:45)
[2017-03-27] VITALS (7 sets, daily range): BP systolic 108–125; BP diastolic 63–72; PULSE 68–88; RESP 18–22; TEMP 96.3–96.7; O2SAT 97–100
[2017-03-27] MEDS: ENOXAPARIN SODIUM 60 MG/0.6 ML SYRINGE SQ SCH ×2 (04:05→16:35)
[2017-03-27 07:41] LABS: HEMATOCRIT 33.8 % (35.0-46.0); MEAN CELL VOLUME 87.3 FL (80.0-100.0); MEAN CORPUSCULAR HGB CONC 35.5 % (32.0-36.0); PLATELET COUNT 123 TH/MM3 (150-450); RED BLOOD COUNT 3.88 MIL/MM3 (4.00-5.30); RED CELL DISTRIBUTION WIDTH 14.8 % (11.6-17.2); REVIEW FLAG FINAL; WHITE BLOOD COUNT 6.9 TH/MM3 (4.0-11.0)
[2017-03-27 08:04] LABS: BICARBONATE 24.1 MEQ/L (21.0-32.0); POTASSIUM 3.3 MEQ/L (3.5-5.1)
[2017-03-27 08:37] LABS: CKMB 5.6 NG/ML (0.5-3.6)
--- NOTE | 2017-03-27 08:49 | HHI.PR ---
Review/Management Diagnosis/Plan: (1) Pulmonary embolus ICD Codes: I26.99 - Other pulmonary embolism without acute cor pulmonale Status: Acute Plan: on lovenox seen by noemi looks better today (2) Rhabdomyolysis ICD Codes: M62.82 - Rhabdomyolysis Status: Acute Plan: rhabdo with hip flexor weakness; ? 2/2 disuse vs infectious/sirs-related with tremor and mild hip flexor weakness will watch for parkinsonism; i follow her outpatient less likely an inflammatory condition ck tending down follow exam p.t. 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 will follow serial exams once acute illness is resolved and watch for pd recs improved follow (4) TIA (transient ischemic attack) ICD Codes: G45.9 - Transient cerebral ischemic attack, unspecified Plan: possible retinal tia mra brain- normal recs inderal for tremor/anxiety 10mg bid if cleared by medical neuro stable afib- if she has it, would suggest OAC. may need to verify with her tree thinner (5) SIRS (systemic inflammatory response syndrome) ICD Codes: R65.10 - Systemic inflammatory response syndrome (SIRS) of non- infectious origin without acute organ dysfunction Status: Acute (6) Anxiety ICD Codes: F41.9 - Anxiety disorder, unspecified Status: Chronic (7) Tachycardia ICD Codes: R00.0 - Tachycardia, unspecified Status: Acute Subjective Subjective Comments No acute events reported breathing better leg weak x months No headache, no holiness pain, no shoulder pain No chest pain No dyspnea Active Medications Current Medications Medications (Trade) Dose Ordered Sig/David Route Start Time Stop Time Status Last Admin (NS Flush) 2 ml UNSCH PRN IVF 03/23/17 09:00 03/23/17 11:07 (NS Flush) 2 ml BID IV FLUSH 03/23/17 21:00 03/26/17 20:29 (Tylenol) 650 mg Q4H PRN PO 03/23/17 11:00 03/25/17 19:47 (Tylenol) 650 mg Q6H PRN PO 03/23/17 11:00 (Narcan Inj) 0.4 mg UNSCH PRN IV PUSH 03/23/17 11:00 (Eugenia-Colace) 1 tab BID PO 03/23/17 21:00 03/26/17 08:34 (Ecotrin Ec) 325 mg DAILY PO 03/24/17 09:00 03/26/17 08:34 (Xanax) 0.125 mg Q6H PRN PO 03/25/17 09:45 03/25/17 18:44 (Duoneb Neb) 1 ampule Q2HR NEB PRN NEB 03/25/17 09:45 03/25/17 21:09 (Cepacol Extra Mario (Sugar Free)) 1 lozenge Q2HR PRN BUCCAL 03/25/17 10:00 (Pill Splitter) 1 ea UNSCH PRN OTHER 03/25/17 10:15 (Levaquin) 750 mg DAILY PO 03/25/17 17:00 03/26/17 08:34 (Magic Mouthwash Adult Liq) 5 ml QID SWISH-SWAL 03/25/17 18:00 03/26/17 20:28 (Protonix) 40 mg DAILY PO 03/25/17 21:15 03/26/17 08:34 (Lovenox Inj) 60 mg Q12H SQ 03/26/17 15:00 03/27/17 04:05 Allergies Allergies Coded Allergies No Known Allergies (Unverified10/27/16) Review of Systems All other ROS: ROS reviewed as documented in chart Exam I&O / VS Vital Signs Date Time Temp Pulse Resp B/P (MAP) Pulse Ox O2 Delivery O2 Flow Rate FiO2 03/27/17 08:00 96.6 82 18 125/67 (86) 97 03/27/17 04:00 96.3 85 20 124/63 (83) 99 03/27/17 00:00 96.3 88 20 116/72 (87) 100 03/26/17 22:20 91 03/26/17 20:00 96.0 90 22 131/65 (87) 98 03/26/17 16:00 97.3 86 16 107/61 (76) 99 03/26/17 12:00 96.2 88 20 117/57 (77) 96 General: Alert and Oriented Eye: Normal conjuctiva Respiratory: Non-labored respirations Cardiology: Other (tachy) Neurologic: Alert, Oriented, Normal sensory, CN II-XII intact, Normal DTR's Psychiatric: Cooperative, Appropriate mood & affect Exam Comments alert, ox 3, follows, eomi, face sym, ou 3-2mm, looks better, more calm, no holiness tenderness, dupont to gravity, no tremor, minimal rigidity in arms, hip flexor weakness, msr sym, no clonus, planter flexor, gait not assessed 2/2 fall risk Objective Micro and Labs Laboratory Tests Test 03/27/17 07:10 White Blood Count 6.9 Red Blood Count 3.88 Hemoglobin 12.0 Hematocrit 33.8 Mean Corpuscular Volume 87.3 Mean Corpuscular Hemoglobin 31.0 Mean Corpuscular Hemoglobin Concent 35.5 Red Cell Distribution Width 14.8 Platelet Count 123 Mean Platelet Volume 11.5 Blood Urea Nitrogen 12 Creatinine 0.51 Random Glucose 112 Calcium Level 8.6 Magnesium Level 2.0 Sodium Level 139 Potassium Level 3.3 Chloride Level 106 Carbon Dioxide Level 24.1 Anion Gap 9 Estimat Glomerular Filtration Rate 116 Total Creatine Kinase 356 Creatine Kinase MB 5.6 Creatine Kinase MB % 1.6 Date/Time Source Procedure Growth Status 03/25/17 21:46 Blood Peripheral Aerobic Blood Culture - Preliminary NO GROWTH IN 1 DAY Resulted 03/25/17 21:46 Blood Peripheral Anaerobic Blood Culture - Preliminary NO GROWTH IN 1 DAY Resulted 03/25/17 10:40 Throat Group A Streptococcus Screen - Preliminary NO BETA STREPTOCOCCI ISOLATED AT 24 H... Resulted 03/23/17 10:30 Urine Catheterized Urine Urine Culture - Final 10-50,000 CFU/ML MIXED GRAM POSITIVE ... Complete Problem Qualifiers (1) TIA (transient ischemic attack): Qualified Codes: G45.3 - Amaurosis fugax Angel Levy MD Mar 27, 2017 08:49
[2017-03-27] MEDS: PANTOPRAZOLE SOD 40 MG DELAYED RELEASE TAB PO SCH (09:00)
[2017-03-27] MEDS: ASPIRIN EC 325 MG TABEC PO SCH (09:28)
[2017-03-27] MEDS: ALPRAZolam 0.25 MG TAB PO PRN ×2 (09:29→21:45)
[2017-03-27] MEDS: DOCUSATE SODIUM 50 MG/SENNA 8.6 MG TAB PO SCH ×2 (09:29→21:06)
[2017-03-27] MEDS: NYSTAT/DIPHENHY/LIDO MOUTHWASH (Adult) 120ML SWISH-SWAL SCH ×4 (09:29→21:06)
[2017-03-27] MEDS: SODIUM CHLORIDE 0.9% FLUSH 10 ML FLUSH IV FLUSH SCH ×2 (09:31→21:06)
--- NOTE | 2017-03-27 10:43 | HHI.IDPN ---
Subjective Subjective Remarks is a very pleasant but anxious 81-year-old female with a past medical history of A. fib and ? 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 She says on Sunday she had a follow-up appointment with her senior mechanical development engineer. She mentioned that she had episodes of her left eye vision being obstructed by something that looked like a nicolas cloud at times. She was referred to an eye doctor was concerned for a TIA and recommended the patient follow up with her director of architecture. The patient did follow up with her oncologist who recommended changing her from a baby aspirin to a full strength aspirin. He also increased the frequency of her hydroxyurea. Her symptoms of weakness continued to worsen and she started having shakes. She has noticed tremors in her upper extremities which she has not had before. She has been sweating profusely. She had an episode of nausea and vomiting. She says she had a fever of 103. She denied any chest pain or shortness of breath. She said she was having difficulty dressing herself. She did state that she fell down because she was so weak. She says she did not hit her head. She said it took a lot for her to get back up. Her daughter was concerned and called the fire department. It appears based on chart review patient came in with h/o fever and subsequently had low grade fever. After Vanco and Zosyn IV started pt developed high grade fever and leucopenia and thrombocytopenia. Also pt reports her hydroxyurea was recently increased by her oncologist in [place] approx 7 days GUT SNATCHER. ID consulted for evaluation and Mment of fever of unknown origin and rhabdomyolysis. Overnight events reviewed No fevers Complains of weakness generalized. Complains of seeing rainbow. Opthalm consult pending. clinically does not behave like infection. Comfortable sitting in a chair. No rash No diarrhea Antibiotics Levaquin Lines Line sites with no e.o infection Past Medical History reviewed Allergies: Coded Allergies: No Known Allergies (Unverified , 10/27/16) Objective . Vital Signs Date Time Temp Pulse Resp B/P (MAP) Pulse Ox O2 Delivery O2 Flow Rate FiO2 03/27/17 08:00 96.6 82 18 125/67 (86) 97 03/27/17 04:00 96.3 85 20 124/63 (83) 99 03/27/17 00:00 96.3 88 20 116/72 (87) 100 03/26/17 22:20 91 03/26/17 20:00 96.0 90 22 131/65 (87) 98 03/26/17 16:00 97.3 86 16 107/61 (76) 99 03/26/17 12:00 96.2 88 20 117/57 (77) 96 . Laboratory Tests Test 03/25/17 12:18 03/26/17 06:48 03/27/17 07:10 White Blood Count 3.3 TH/MM3 2.8 TH/MM3 6.9 TH/MM3 Red Blood Count 4.04 MIL/MM3 4.10 MIL/MM3 3.88 MIL/MM3 Hemoglobin 12.5 GM/DL 12.8 GM/DL 12.0 GM/DL Hematocrit 35.5 % 35.9 % 33.8 % Mean Corpuscular Volume 87.9 FL 87.5 FL 87.3 FL Mean Corpuscular Hemoglobin 30.9 PG 31.2 PG 31.0 PG Mean Corpuscular Hemoglobin Concent 35.1 % 35.6 % 35.5 % Red Cell Distribution Width 14.5 % 14.6 % 14.8 % Platelet Count 121 TH/MM3 104 TH/MM3 123 TH/MM3 Mean Platelet Volume 11.2 FL 11.0 FL 11.5 FL Neutrophils (%) (Auto) 84.2 % 83.1 % Lymphocytes (%) (Auto) 11.7 % 14.4 % Monocytes (%) (Auto) 3.5 % 2.4 % Eosinophils (%) (Auto) 0.3 % 0.0 % Basophils (%) (Auto) 0.3 % 0.1 % Neutrophils # (Auto) 2.7 TH/MM3 2.3 TH/MM3 Lymphocytes # (Auto) 0.4 TH/MM3 0.4 TH/MM3 Monocytes # (Auto) 0.1 TH/MM3 0.1 TH/MM3 Eosinophils # (Auto) 0.0 TH/MM3 0.0 TH/MM3 Basophils # (Auto) 0.0 TH/MM3 0.0 TH/MM3 CBC Comment DIFF FINAL DIFF FINAL Differential Comment Erythrocyte Sedimentation Rate 7 mm/hr Blood Smear Pathologist Review Haptoglobin 185 MG/DL Laboratory Tests Test 03/26/17 06:48 03/27/17 07:10 Blood Urea Nitrogen 10 MG/DL 12 MG/DL Creatinine 0.46 MG/DL 0.51 MG/DL Random Glucose 145 MG/DL 112 MG/DL Total Protein 4.6 GM/DL Albumin 2.2 GM/DL Calcium Level 7.7 MG/DL 8.6 MG/DL Magnesium Level 2.0 MG/DL 2.0 MG/DL Alkaline Phosphatase 57 U/L Aspartate Amino Transf (AST/SGOT) 63 U/L Alanine Aminotransferase (ALT/SGPT) 37 U/L Total Bilirubin 0.6 MG/DL Direct Bilirubin 0.3 MG/DL Sodium Level 137 MEQ/L 139 MEQ/L Potassium Level 3.4 MEQ/L 3.3 MEQ/L Chloride Level 107 MEQ/L 106 MEQ/L Carbon Dioxide Level 20.7 MEQ/L 24.1 MEQ/L Anion Gap 9 MEQ/L 9 MEQ/L Estimat Glomerular Filtration Rate 131 ML/MIN 116 ML/MIN Iron Level 30 MCG/DL Total Iron Binding Capacity 175 MCG/DL Percent Iron Saturation 17.1 % Ferritin 2976 NG/ML Indirect Bilirubin 0.3 MG/DL Total Creatine Kinase 940 U/L 356 U/L Creatine Kinase MB 4.7 NG/ML 5.6 NG/ML Creatine Kinase MB % 0.5 % 1.6 % Folate 19.9 NG/ML Microbiology Date/Time Source Procedure Growth Status 03/25/17 21:46 Blood Peripheral Aerobic Blood Culture - Preliminary NO GROWTH IN 1 DAY Resulted 03/25/17 21:46 Blood Peripheral Anaerobic Blood Culture - Preliminary NO GROWTH IN 1 DAY Resulted 03/25/17 21:42 Blood Peripheral Aerobic Blood Culture - Preliminary NO GROWTH IN 1 DAY Resulted 03/25/17 21:42 Blood Peripheral Anaerobic Blood Culture - Preliminary NO GROWTH IN 1 DAY Resulted 03/25/17 10:40 Throat Group A Streptococcus Screen - Preliminary NO BETA STREPTOCOCCI ISOLATED AT 24 H... Resulted 03/25/17 10:40 Throat Group A Streptococcus Screen (REBECCA) - Final Complete Imaging Last Impressions Lower Extremity Ultrasound 03/25/17 0000 Signed Impressions: Service Date/Time: Saturday, March 25, 2017 22:01 - CONCLUSION: Normal examination. Jorge Reynaga MD Head Magnetic Resonance Angiography 03/25/17 0000 Signed Impressions: Service Date/Time: Saturday, March 25, 2017 15:08 - CONCLUSION: No acute [place] of [place] vascular findings. Jorge Reynaga MD Chest X-Ray 10/8/17 0000 Signed Impressions: Service Date/Time: Saturday, March 25, 2017 09:15 - CONCLUSION: 1. Chronic appearing interstitial changes. Stable examination compared to previous dated 03/23/17. Mart Farrell MD CT Angiography 03/25/17 Signed Impressions: Service Date/Time: Sunday, March 26, 2017 01:35 - CONCLUSION: Relatively low volume pulmonary embolism. Mild bilateral dependent lung atelectasis and small effusions. Mild nonspecific prominence of hilar and mediastinal nodes. Jorge Reynaga MD Carotid Artery Ultrasound 03/24/17 Signed Impressions: Service Date/Time: Friday, March 24, 2017 10:31 - CONCLUSION: No evidence of flow-limiting carotid stenosis. Jorge Reynaga MD Brain MRI 03/24/17 Signed Impressions: Service Date/Time: Friday, March 24, 2017 11:35 - CONCLUSION: 1. No acute intracranial abnormality identified. Mart Farrell MD Head CT 03/23/17 0856 Signed Impressions: Service Date/Time: Thursday, March 23, 2017 09:28 - CONCLUSION: Normal examination. Jorge Reynaga MD Physical Exam GENERAL: This is a well-nourished, well-developed patient, in no apparent distress. SKIN: No rashes, ecchymoses or lesions. Cool and dry. HEAD: Atraumatic. Normocephalic. No temporal or scalp tenderness. EYES: Pupils equal round and reactive. Extraocular motions intact. No scleral icterus. No injection or drainage. ENT: Nose without bleeding, purulent drainage or septal hematoma. Throat without erythema, tonsillar hypertrophy or exudate. Uvula midline. Airway patent. No temporal tenderness. NECK: Trachea midline. Supple, nontender, no meningeal signs. CARDIOVASCULAR: Regular rate and rhythm without murmurs, gallops, or rubs. RESPIRATORY: Clear to auscultation. Breath sounds equal bilaterally. No wheezes , rales, or rhonchi. GASTROINTESTINAL: Abdomen soft, non-tender, nondistended. MUSCULOSKELETAL: Extremities without clubbing, cyanosis, or edema. No joint tenderness, effusion, or edema noted. No calf tenderness. Negative Homans sign bilaterally. NEUROLOGICAL: Awake and alert. Non focal. Speech at times slow. Psych cooperative IV line sites with no e.o infection. Assessment & Plan Remarks Fever possible sepsis on admission. Clinical picture s.o fever due to viral process on admission. Subsequently fever appears to be drug induced (antibiotics, hydroxyurea) Oral mucositis (antibiotics, hydroxyurea) Thrombocytopenia and Leucopenia (antibiotics, hydroxyurea) Elevated CRP: ? inflammatory processes (RA, Lupus,temporal arteritis) New small PE ? cause of fever although seems less likely Recs DC oral levaquin. Magic mouth wash for mucositis (fungal vs drug induced) Clinically does not behave like infectious process. d/w and if fevers do not resolve in next 24 hours will consider trial of steroids. Opthalm consult. Follow cultures Follow clinically. If no fevers overnight without antibiotics ok to discharge from ID standpoint. Will sign off please call back if any change in clinical condition or questions. Delilah Salazar MD Mar 27, 2017 10:43
[2017-03-27] MEDS ORDERED: POTASSIUM CHLORIDE 25 MEQ EFFERVESCENT TAB PO ONE (11:15)
--- NOTE | 2017-03-27 11:15 | HHI.PR ---
Subjective Remarks The patient endorses anxiety. She says she woke up seeing a rainbow of spots in both of her eyes. That has resolved. She still feels very weak and is concerned about not being able to stand. She says she is not eating as much as she should be. She endorses a headache at both temples. Discussed with infectious disease. Objective Vitals Vital Signs Date Time Temp Pulse Resp B/P (MAP) Pulse Ox O2 Delivery O2 Flow Rate FiO2 03/27/17 08:00 96.6 82 18 125/67 (86) 97 03/27/17 04:00 96.3 85 20 124/63 (83) 99 03/27/17 00:00 96.3 88 20 116/72 (87) 100 03/26/17 22:20 91 03/26/17 20:00 96.0 90 22 131/65 (87) 98 03/26/17 16:00 97.3 86 16 107/61 (76) 99 03/26/17 12:00 96.2 88 20 117/57 (77) 96 I/O 03/26/17 03/26/17 03/26/17 03/27/17 03/27/17 03/27/17 07:00 15:00 23:00 07:00 15:00 23:00 Intake Total 2570 ml 480 ml 360 ml Output Total 450 ml Balance 2570 ml 480 ml -90 ml Intake Oral 480 ml 360 ml IV Total 2570 ml Output Urine Total 450 ml # Voids 3 3 # Bowel Movements 0 0 Result Diagram: 03/27/17 0710 03/27/17 0710 Imaging Last Impressions Lower Extremity Ultrasound 03/25/17 0000 Signed Impressions: Service Date/Time: Saturday, March 25, 2017 22:01 - CONCLUSION: Normal examination. Jorge Reynaga MD Head Magnetic Resonance Angiography 03/25/17 0000 Signed Impressions: Service Date/Time: Saturday, March 25, 2017 15:08 - CONCLUSION: No acute [place] vascular findings. Jorge Reynaga MD Chest X-Ray 03/25/17 0000 Signed Impressions: Service Date/Time: Saturday, March 25, 2017 09:15 - CONCLUSION: 1. Chronic appearing interstitial changes. Stable examination compared to previous dated 03/23/17. Mart Farrell MD CT Angiography 10/8/17 0000 Signed Impressions: Service Date/Time: Sunday, March 26, 2017 01:35 - CONCLUSION: Relatively low volume pulmonary embolism. Mild bilateral dependent lung atelectasis and small effusions. Mild nonspecific prominence of hilar and mediastinal nodes. Jorge Reynaga MD Carotid Artery Ultrasound 03/24/17 Signed Impressions: Service Date/Time: Friday, March 24, 2017 10:31 - CONCLUSION: No evidence of flow-limiting carotid stenosis. Jorge Reynaga MD Brain MRI 03/24/17 Signed Impressions: Service Date/Time: Friday, March 24, 2017 11:35 - CONCLUSION: 1. No acute intracranial abnormality identified. Mart Farrell MD Head CT 03/23/17 0856 Signed Impressions: Service Date/Time: Thursday, March 23, 2017 09:28 - CONCLUSION: Normal examination. Jorge Reynaga MD Objective Remarks GENERAL: This is a well-nourished, well-developed patient, in no apparent distress. SKIN: No rashes, ecchymoses or lesions. Cool and dry. HEAD: Atraumatic. Normocephalic. No temporal or scalp tenderness. EYES: Pupils equal round and reactive. Extraocular motions intact. No scleral icterus. No injection or drainage. ENT: Nose without bleeding, purulent drainage or septal hematoma. Throat without erythema, tonsillar hypertrophy or exudate. Uvula midline. Airway patent. NECK: Trachea midline. No JVD or lymphadenopathy. Supple, nontender, no meningeal signs. No carotid bruits appreciated. CARDIOVASCULAR: Regular rate and rhythm without murmurs, gallops, or rubs. RESPIRATORY: Clear to auscultation. Breath sounds equal bilaterally. No wheezes , rales, or rhonchi. GASTROINTESTINAL: Abdomen soft, non-tender, nondistended. No hepato-splenomegaly , or palpable masses. No guarding. MUSCULOSKELETAL: Extremities without clubbing, cyanosis, or edema. Right calf tender to palpation. NEUROLOGICAL: Awake and alert. Cranial nerves II through XII intact. Motor and sensory grossly within normal limits. Five out of 5 muscle strength in all muscle groups. Normal speech. PSYCH: Slightly anxious. Medications and IVs Current Medications Medications (Trade) Dose Ordered Sig/David Route Start Time Stop Time Status Last Admin (NS Flush) 2 ml UNSCH PRN IVF 03/23/17 09:00 03/23/17 11:07 (NS Flush) 2 ml BID IV FLUSH 03/23/17 21:00 03/27/17 09:31 (Tylenol) 650 mg Q4H PRN PO 03/23/17 11:00 03/25/17 19:47 (Tylenol) 650 mg Q6H PRN PO 03/23/17 11:00 (Narcan Inj) 0.4 mg UNSCH PRN IV PUSH 03/23/17 11:00 (Eugenia-Colace) 1 tab BID PO 03/23/17 21:00 03/27/17 09:29 (Ecotrin Ec) 325 mg DAILY PO 03/24/17 09:00 03/27/17 09:28 (Duoneb Neb) 1 ampule Q2HR NEB PRN NEB 03/25/17 09:45 03/25/17 21:09 (Cepacol Extra Mario (Sugar Free)) 1 lozenge Q2HR PRN BUCCAL 03/25/17 10:00 (Pill Splitter) 1 ea UNSCH PRN OTHER 03/25/17 10:15 03/27/17 09:30 (Magic Mouthwash Adult Liq) 5 ml QID SWISH-SWAL 03/25/17 18:00 03/27/17 09:29 (Protonix) 40 mg DAILY PO 03/25/17 21:15 03/27/17 09:00 (Lovenox Inj) 60 mg Q12H SQ 03/26/17 15:00 03/27/17 04:05 (Xanax) 0.25 mg Q6H PRN PO 03/27/17 15:45 UNV (K-Lyte Cl Eff) 50 meq ONCE ONCE PO 03/27/17 11:15 03/27/17 11:16 UNV (Inderal) 10 mg Q12HR PO 03/27/17 11:15 UNV A/P Assessment and Plan Weakness/ hypokalemia/ rhabdomyolysis/ UTI The patient endorses significant lower extremity weakness along with a new tremor. She did have a potassium level of 2.8 on admission. She also had an elevated CPK level. CT of the brain was unremarkable. She was found to have a likely UTI. She recently had her hydroxyurea dose doubled, it's possible weakness is secondary to that. Questionable viral or rheumatologic etiology. - PT and OT. - Follow BMP and replete electrolytes as needed. KCl ordered 03/27. - Neuro checks. - Trend CPK level. Improving. - Monitor on telemetry. - d/c antibiotics per ID. - Blood cultures 2. - d/c hydroxyurea. - check LAURA. 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 Oncology consult appreciated. Hydroxyurea has been d/c. - oncology following. - follow CBC. Improving. FUO The pt has been spiking fevers. CXR unremarkable. ID consult appreciated. UA unremarkable. May be s/t PE. - Levaquin d/c per ID. - s/p IVFs. PE Noted on CTA. Hematology consult appreciated. - Lovenox started. - follow up with hematology. Vision changes/ Weakness The patient says she had a cloudy spot on her left eye. She went to an eye doctor who she says was concerned about a TIA. CT head unremarkable. The patient 's visual symptoms have resolved. She still has weakness. MRI brain and carotid US unremarkable. Neuro consult appreciated. Echo with normal EF. - neuro following. - PT/ OT. - continue ASA. - ophtho consult pending. - start prednisone for possible GCA as pt is having headaches, has an elevated CRP and has been febrile. 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 She said that she is on the hydroxyurea but was told that she would not from her cancer. Her dose was recently doubled. - d/c hydroxyurea. - oncology following. PPx: Lovenox Discharge Planning Awaiting further workup Nathan Berg DO Mar 27, 2017 11:15
[2017-03-27] MEDS: predniSONE 20 MG TAB PO SCH (13:12)
[2017-03-27] MEDS: PROPRANOLOL HCL 10 MG TAB PO SCH ×3 (13:12→21:06)
[2017-03-28] VITALS: BP 116/58; PULSE 81; RESP 20; TEMP 96.1; O2SAT 97
[2017-03-28 04:00] VITALS: BP 121/59; PULSE 81; RESP 20; TEMP 96.5; O2SAT 98
[2017-03-28] MEDS: ENOXAPARIN SODIUM 60 MG/0.6 ML SYRINGE SQ SCH ×2 (04:00→17:10)
[2017-03-28 08:00] VITALS: BP 128/64; PULSE 75; RESP 20; TEMP 96.9; O2SAT 97
[2017-03-28] MEDS: PANTOPRAZOLE SOD 40 MG DELAYED RELEASE TAB PO SCH (08:48)
[2017-03-28] MEDS: PROPRANOLOL HCL 10 MG TAB PO SCH (08:48)
[2017-03-28] MEDS: predniSONE 20 MG TAB PO SCH (08:48)
[2017-03-28] MEDS: DOCUSATE SODIUM 50 MG/SENNA 8.6 MG TAB PO SCH (08:48)
[2017-03-28] MEDS: ASPIRIN EC 325 MG TABEC PO SCH (08:48)
[2017-03-28] MEDS: NYSTAT/DIPHENHY/LIDO MOUTHWASH (Adult) 120ML SWISH-SWAL SCH ×3 (08:49→18:00)
--- NOTE | 2017-03-28 08:53 | HHI.PR ---
Review/Management Diagnosis/Plan: (1) Rhabdomyolysis ICD Codes: M62.82 - Rhabdomyolysis Status: Acute Plan: rhabdo with hip flexor weakness; ? 2/2 disuse vs infectious/sirs-related with tremor and mild hip flexor weakness will watch for parkinsonism; i follow her outpatient less likely an inflammatory condition- possibility of pmr/gca? last fever 03/25; afebrile since initiation of anticoagulation steroids added by medical ck tending down prior to steroids recs boost/ensure p.t. for hip flexor weakness will likely need inpt rehab- 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 will follow serial exams once acute illness is resolved and watch for pd recs improved (4) TIA (transient ischemic attack) ICD Codes: G45.9 - Transient cerebral ischemic attack, unspecified Plan: possible retinal tia mra brain- normal recs inderal for tremor/anxiety 10mg bid if cleared by medical neuro stable afib- if she has it, would suggest OAC. 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 (5) SIRS (systemic inflammatory response syndrome) ICD Codes: R65.10 - Systemic inflammatory response syndrome (SIRS) of non- infectious origin without acute organ dysfunction Status: Acute (6) Anxiety ICD Codes: F41.9 - Anxiety disorder, unspecified Status: Chronic (7) Tachycardia ICD Codes: R00.0 - Tachycardia, unspecified Status: Acute Subjective Subjective Comments No acute events reported No headache tremors better No chest pain No dyspnea Active Medications Current Medications Medications (Trade) Dose Ordered Sig/David Route Start Time Stop Time Status Last Admin (NS Flush) 2 ml UNSCH PRN IVF 03/23/17 09:00 03/23/17 11:07 (NS Flush) 2 ml BID IV FLUSH 03/23/17 21:00 03/27/17 21:06 (Tylenol) 650 mg Q4H PRN PO 03/23/17 11:00 03/25/17 19:47 (Tylenol) 650 mg Q6H PRN PO 03/23/17 11:00 (Narcan Inj) 0.4 mg UNSCH PRN IV PUSH 03/23/17 11:00 (Eugenia-Colace) 1 tab BID PO 03/23/17 21:00 03/27/17 21:06 (Ecotrin Ec) 325 mg DAILY PO 03/24/17 09:00 03/27/17 09:28 (Duoneb Neb) 1 ampule Q2HR NEB PRN NEB 03/25/17 09:45 03/25/17 21:09 (Cepacol Extra Mario (Sugar Free)) 1 lozenge Q2HR PRN BUCCAL 03/25/17 10:00 (Pill Splitter) 1 ea UNSCH PRN OTHER 03/25/17 10:15 03/27/17 09:30 (Magic Mouthwash Adult Liq) 5 ml QID SWISH-SWAL 03/25/17 18:00 03/27/17 21:06 (Protonix) 40 mg DAILY PO 03/25/17 21:15 03/27/17 09:00 (Lovenox Inj) 60 mg Q12H SQ 03/26/17 15:00 03/28/17 04:00 (Xanax) 0.25 mg Q6H PRN PO 03/27/17 15:45 03/27/17 21:45 (Inderal) 10 mg Q12HR PO 03/27/17 11:15 03/27/17 21:06 (Deltasone) 60 mg DAILY PO 03/27/17 11:30 03/27/17 13:12 Allergies Allergies Coded Allergies No Known Allergies (Unverified10/27/16) Review of Systems All other ROS: ROS reviewed as documented in chart Exam I&O / VS 03/28/17 03/28/17 03/29/17 15:00 23:00 07:00 Intake Total 120 ml Balance 120 ml Intake Oral 120 ml Vital Signs Date Time Temp Pulse Resp B/P (MAP) Pulse Ox O2 Delivery O2 Flow Rate FiO2 03/28/17 08:00 96.9 75 20 128/64 (85) 97 03/28/17 04:00 96.5 81 20 121/59 (79) 98 03/28/17 00:00 96.1 81 20 116/58 (77) 97 03/27/17 21:58 97 Nasal Cannula 2.00 03/27/17 20:00 96.6 68 22 122/63 (82) 98 03/27/17 16:00 96.7 82 18 124/68 (86) 100 03/27/17 12:00 96.5 88 18 108/65 (79) 100 General: Alert and Oriented Eye: Normal conjuctiva Respiratory: Non-labored respirations Cardiology: Other (tachy) Neurologic: Alert, Oriented, Normal sensory, CN II-XII intact, Normal DTR's Psychiatric: Cooperative, Appropriate mood & affect Exam Comments alert, ox 3, sitting up in chair eating breakfast, follows, eomi, face sym, ou 3 -2mm, looks well, calm, no sabianism tenderness, dupont to gravity, no tremor, minimal rigidity in arms, hip flexor weakness, msr sym, gait not assessed 2/2 fall risk Objective Micro and Labs Laboratory Tests Test 03/28/17 07:33 Date/Time Source Procedure Growth Status 03/25/17 21:46 Blood Peripheral Aerobic Blood Culture - Preliminary NO GROWTH IN 2 DAYS Resulted 03/25/17 21:46 Blood Peripheral Anaerobic Blood Culture - Preliminary NO GROWTH IN 2 DAYS Resulted 03/25/17 10:40 Throat Group A Streptococcus Screen - Final NO GP A BETA STREP ISOLATED. Complete 03/23/17 10:30 Urine Catheterized Urine Urine Culture - Final 10-50,000 CFU/ML MIXED GRAM POSITIVE ... Complete Problem Qualifiers (1) TIA (transient ischemic attack): Qualified Codes: G45.3 - Amaurosis fugax Angel Levy MD Mar 28, 2017 08:53
[2017-03-28] MEDS: ALPRAZolam 0.25 MG TAB PO PRN ×2 (08:57→17:04)
[2017-03-28] MEDS: SODIUM CHLORIDE 0.9% FLUSH 10 ML FLUSH IV FLUSH SCH (08:57)
[2017-03-28 09:02] LABS: BICARBONATE 25.6 MEQ/L (21.0-32.0); MAGNESIUM 1.9 MG/DL (1.5-2.5); MEAN CELL VOLUME 89.6 FL (80.0-100.0); MEAN CORPUSCULAR HEMOGLOBIN 31.9 PG (27.0-34.0); MEAN CORPUSCULAR HGB CONC 35.6 % (32.0-36.0); PLATELET COUNT 149 TH/MM3 (150-450); RED BLOOD COUNT 3.57 MIL/MM3 (4.00-5.30); RED CELL DISTRIBUTION WIDTH 14.8 % (11.6-17.2); REVIEW FLAG FINAL; WHITE BLOOD COUNT 8.1 TH/MM3 (4.0-11.0)
[2017-03-28 09:40] VITALS: O2SAT 97
[2017-03-28 12:00] VITALS: BP_SYST 118; BP_SYST 175; BP_DIAS 60; BP_DIAS 79; PULSE 78; RESP 19; TEMP 97.3; O2SAT 95
--- NOTE | 2017-03-28 12:07 | PD.CONS ---
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 Poor historian - most of the history was obtained from the chart. She said on Sunday she told her associate sales representative that she had episodes of her left eye vision being obstructed by something that looked like a nicolas cloud at times. She was referred to an eye doctor ([facility] and they were concerned for a TIA and recommended the patient follow up with her desktop administrator. Her oncologist recommended changing her from a baby aspirin to a full strength aspirin. Vanco and Zosyn IV started due to fever, leucopenia and thrombocytopenia. She was also diagnosed with a PE and started on Lovenox. Currently she states that 3 days ago she started having intermittent vision changes where she sees rainbows and sparkles falling from the [place]. Denies blurry vision or episodes of vision going dark. No curtain, no flashes. She does not know if it is one or both eyes. She does not know how long these episodes last for. She states she has had a mild headache on both her temples but is unsure if this started around the same time as her vision changes. Ocular history significant for cataract surgery in both eyes. Past Family Social History Allergies: Coded Allergies: No Known Allergies (Unverified , 10/27/16) Physical Exam Vital Signs Vital Signs Date Time Temp Pulse Resp B/P (MAP) Pulse Ox O2 Delivery O2 Flow Rate FiO2 03/28/17 09:40 97 Nasal Cannula 2.00 03/28/17 08:00 96.9 75 20 128/64 (85) 97 03/28/17 04:00 96.5 81 20 121/59 (79) 98 03/28/17 00:00 96.1 81 20 116/58 (77) 97 03/27/17 21:58 97 Nasal Cannula 2.00 03/27/17 20:00 96.6 68 22 122/63 (82) 98 03/27/17 16:00 96.7 82 18 124/68 (86) 100 03/27/17 12:00 96.5 88 18 108/65 (79) 100 Physical Exam Va cc at near OD 20/30, OS 20/25 EOM full OU, no diplopia CVF full OU Pupils 2-1 no APD OU IOP normal to palpation OU Anterior exam OD - normal eyelid, C/S W&Q, K clear, AC deep, pupil round, PCIOL OS - normal eyelid, C/S W&Q, K clear, AC deep, pupil round, PCIOL Dilated exam OD - ON s/p/f, ves normal, vit clear, retina flat OS - ON s/p/f, ves normal, vit clear, retina flat Laboratory Laboratory Tests Test 03/28/17 07:33 White Blood Count 8.1 Red Blood Count 3.57 Hemoglobin 11.4 Hematocrit 32.0 Mean Corpuscular Volume 89.6 Mean Corpuscular Hemoglobin 31.9 Mean Corpuscular Hemoglobin Concent 35.6 Red Cell Distribution Width 14.8 Platelet Count 149 Mean Platelet Volume 11.9 Blood Urea Nitrogen 15 Creatinine 0.45 Random Glucose 109 Calcium Level 8.7 Magnesium Level 1.9 Sodium Level 137 Potassium Level 4.0 Chloride Level 104 Carbon Dioxide Level 25.6 Anion Gap 7 Estimat Glomerular Filtration Rate 134 Date/Time Source Procedure Growth Status 03/25/17 21:46 Blood Peripheral Aerobic Blood Culture - Preliminary NO GROWTH IN 3 DAYS Resulted 03/25/17 21:46 Blood Peripheral Anaerobic Blood Culture - Preliminary NO GROWTH IN 3 DAYS Resulted 03/25/17 10:40 Throat Group A Streptococcus Screen - Final NO GP A BETA STREP ISOLATED. Complete 03/23/17 10:30 Urine Catheterized Urine Urine Culture - Final 10-50,000 CFU/ML MIXED GRAM POSITIVE ... Complete Result Diagram: 03/28/1733 03/28/1733 Assessment and Plan Problem List: (1) Amaurosis fugax of left eye ICD Codes: G45.3 - Amaurosis fugax Plan: Most likely cause of last week's vision complaints is amaurosis fugax. She has already been changed from a baby ASA to full dose. Carotid artery US was normal. MRI brain was normal. Recommend Echocardiogram if this has not already been done, given her history of AFib. There was some concern for GCA - pt denies most symptoms except for the temporal headache. Normal dilated exam ( no optic nerve edema or hemorrhages) makes this unlikely. Lori Cervantes MD Mar 28, 2017 12:07
[2017-03-28] MEDS ORDERED: ALPR.25 PO (12:11)
[2017-03-28] MEDS ORDERED: PROP10TA6 PO (12:11)
--- NOTE | 2017-03-28 12:16 | HHI.PR ---
Subjective Remarks The patient was seen alongside hematology. The patient's family was also present. The patient had questions regarding her medical conditions and what medication she should be on. She says she spoke with the bilingual case manager in regards to long-term facilities. Discussed with nursing. Objective Vitals Vital Signs Date Time Temp Pulse Resp B/P (MAP) Pulse Ox O2 Delivery O2 Flow Rate FiO2 03/28/17 09:40 97 Nasal Cannula 2.00 03/28/17 08:00 96.9 75 20 128/64 (85) 97 03/28/17 04:00 96.5 81 20 121/59 (79) 98 03/28/17 00:00 96.1 81 20 116/58 (77) 97 03/27/17 21:58 97 Nasal Cannula 2.00 03/27/17 20:00 96.6 68 22 122/63 (82) 98 03/27/17 16:00 96.7 82 18 124/68 (86) 100 I/O 03/27/17 03/27/17 03/27/17 03/28/17 03/28/17 03/28/17 07:00 15:00 23:00 07:00 15:00 23:00 Intake Total 360 ml 300 ml 360 ml 120 ml Output Total 450 ml 750 ml Balance -90 ml 300 ml -390 ml 120 ml Intake Oral 360 ml 300 ml 360 ml 120 ml Output Urine Total 450 ml 750 ml # Voids 2 # Bowel Movements 0 0 0 Result Diagram: 03/28/1773203/28/1733 Imaging Last Impressions Lower Extremity Ultrasound 03/25/17 Signed Impressions: Service Date/Time: Saturday, March 25, 2017 22:01 - CONCLUSION: Normal examination. Jorge Reynaga MD Head Magnetic Resonance Angiography 03/25/17 Signed Impressions: Service Date/Time: Saturday, March 25, 2017 15:08 - CONCLUSION: No acute [place] of [place] vascular findings. Jorge Reynaga MD Chest X-Ray 03/25/17 Signed Impressions: Service Date/Time: Saturday, March 25, 2017 09:15 - CONCLUSION: 1. Chronic appearing interstitial changes. Stable examination compared to previous dated 03/23/17. Mart Farrell MD CT Angiography 03/25/17 0000 Signed Impressions: Service Date/Time: Sunday, March 26, 2017 01:35 - CONCLUSION: Relatively low volume pulmonary embolism. Mild bilateral dependent lung atelectasis and small effusions. Mild nonspecific prominence of hilar and mediastinal nodes. Jorge Reynaga MD Carotid Artery Ultrasound 03/24/17 0000 Signed Impressions: Service Date/Time: Friday, March 24, 2017 10:31 - CONCLUSION: No evidence of flow-limiting carotid stenosis. Jorge Reynaga MD Brain MRI 03/24/17 0000 Signed Impressions: Service Date/Time: Friday, March 24, 2017 11:35 - CONCLUSION: 1. No acute intracranial abnormality identified. Mart Farrell MD Head CT 03/23/17 0856 Signed Impressions: Service Date/Time: Thursday, March 23, 2017 09:28 - CONCLUSION: Normal examination. Jorge Reynaga MD Objective Remarks GENERAL: This is a well-nourished, well-developed patient, in no apparent distress. SKIN: No rashes, ecchymoses or lesions. Cool and dry. HEAD: Atraumatic. Normocephalic. No temporal or scalp tenderness. EYES: Pupils equal round and reactive. Extraocular motions intact. No scleral icterus. No injection or drainage. ENT: Nose without bleeding, purulent drainage or septal hematoma. Throat without erythema, tonsillar hypertrophy or exudate. Uvula midline. Airway patent. NECK: Trachea midline. No JVD or lymphadenopathy. Supple, nontender, no meningeal signs. No carotid bruits appreciated. CARDIOVASCULAR: Regular rate and rhythm without murmurs, gallops, or rubs. RESPIRATORY: Clear to auscultation. Breath sounds equal bilaterally. No wheezes , rales, or rhonchi. GASTROINTESTINAL: Abdomen soft, non-tender, nondistended. No hepato-splenomegaly , or palpable masses. No guarding. MUSCULOSKELETAL: Extremities without clubbing, cyanosis, or edema. Right calf tender to palpation. NEUROLOGICAL: Awake and alert. Cranial nerves II through XII intact. Motor and sensory grossly within normal limits. Five out of 5 muscle strength in all muscle groups. Normal speech. PSYCH: Mood and affect appropriate. Medications and IVs Current Medications Medications (Trade) Dose Ordered Sig/David Route Start Time Stop Time Status Last Admin (NS Flush) 2 ml UNSCH PRN IVF 03/23/17 09:00 03/23/17 11:07 (NS Flush) 2 ml BID IV FLUSH 03/23/17 21:00 03/28/17 08:57 (Tylenol) 650 mg Q4H PRN PO 03/23/17 11:00 03/25/17 19:47 (Tylenol) 650 mg Q6H PRN PO 03/23/17 11:00 (Narcan Inj) 0.4 mg UNSCH PRN IV PUSH 03/23/17 11:00 (Eugenia-Colace) 1 tab BID PO 03/23/17 21:00 03/28/17 08:48 (Ecotrin Ec) 325 mg DAILY PO 03/24/17 09:00 03/28/17 08:48 (Duoneb Neb) 1 ampule Q2HR NEB PRN NEB 03/25/17 09:45 03/25/17 21:09 (Cepacol Extra Mario (Sugar Free)) 1 lozenge Q2HR PRN BUCCAL 03/25/17 10:00 (Pill Splitter) 1 ea UNSCH PRN OTHER 03/25/17 10:15 03/27/17 09:30 (Magic Mouthwash Adult Liq) 5 ml QID SWISH-SWAL 03/25/17 18:00 03/28/17 08:49 (Protonix) 40 mg DAILY PO 03/25/17 21:15 03/28/17 08:48 (Lovenox Inj) 60 mg Q12H SQ 03/26/17 15:00 03/28/17 04:00 (Xanax) 0.25 mg Q6H PRN PO 03/27/17 15:45 03/28/17 08:57 (Inderal) 10 mg Q12HR PO 03/27/17 11:15 03/28/17 08:48 A/P Assessment and Plan Weakness/ hypokalemia/ rhabdomyolysis/ UTI The patient endorses significant lower extremity weakness along with a new tremor. She did have a potassium level of 2.8 on admission. She also had an elevated CPK level. CT of the brain was unremarkable. She was found to have a likely UTI. She recently had her hydroxyurea dose doubled, it's possible weakness is secondary to that. Questionable viral or rheumatologic etiology. - PT and OT. - Follow BMP and replete electrolytes as needed. KCl ordered 03/27. Resolved. - Neuro checks. - Trend CPK level. Improved. - Monitor on telemetry. - d/c antibiotics per ID. - Blood cultures 2. NGTD. - d/c hydroxyurea. - check LAURA. 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 Oncology consult appreciated. Hydroxyurea has been d/c. - oncology following. Will need outpt follow-up. - follow CBC. Improving. FUO The pt has been spiking fevers. CXR unremarkable. ID consult appreciated. UA unremarkable. May be s/t PE. - Levaquin d/c per ID. - s/p IVFs. - anticoagulation. PE Noted on CTA. Hematology consult appreciated. - Lovenox started. - follow up with hematology. Discussed with family. Will d/c on Eliquis. Vision changes/ Weakness The patient says she had a cloudy spot on her left eye. She went to an eye doctor who she says was concerned about a TIA. CT head unremarkable. The patient 's visual symptoms have resolved. She still has weakness. MRI brain and carotid US unremarkable. Neuro consult appreciated. Echo with normal EF. Ophthalmology evaluated pt 03/28. - neuro following. - PT/ OT. - continue ASA and Eliquis. - started prednisone for possible GCA. Ophtho exam normal. D/c prednisone. 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 She said that she is on the hydroxyurea but was told that she would not from her cancer. Her dose was recently doubled. - d/c hydroxyurea. - oncology follow up as outpt. PPx: Lovenox Discharge Planning D/c to SNF when bed available Nathan Berg DO Mar 28, 2017 12:16
--- NOTE | 2017-03-28 14:49 | PD.ONC.PN ---
Subjective Subjective Remarks Ms. Ochoa is sitting in a bedside chair today. She has two close friends visiting. She reports that she is feeling better. Objective Data Date Time Temp Pulse Resp B/P (MAP) Pulse Ox O2 Delivery O2 Flow Rate FiO2 03/28/17 12:00 97.3 78 19 118/60 (79) 95 03/28/17 09:40 97 Nasal Cannula 2.00 03/28/17 08:00 96.9 75 20 128/64 (85) 97 03/28/17 04:00 96.5 81 20 121/59 (79) 98 03/28/17 00:00 96.1 81 20 116/58 (77) 97 03/27/17 21:58 97 Nasal Cannula 2.00 03/27/17 20:00 96.6 68 22 122/63 (82) 98 03/27/17 16:00 96.7 82 18 124/68 (86) 100 03/28/17 03/28/17 03/28/17 07:00 15:00 23:00 Intake Total 360 ml 120 ml Output Total 750 ml Balance -390 ml 120 ml Result Diagram: 03/28/17 0733 03/28/17 0733 Laboratory Results Laboratory Tests Test 03/28/17 07:33 White Blood Count 8.1 TH/MM3 Red Blood Count 3.57 MIL/MM3 Hemoglobin 11.4 GM/DL Hematocrit 32.0 % Mean Corpuscular Volume 89.6 FL Mean Corpuscular Hemoglobin 31.9 PG Mean Corpuscular Hemoglobin Concent 35.6 % Red Cell Distribution Width 14.8 % Platelet Count 149 TH/MM3 Mean Platelet Volume 11.9 FL Blood Urea Nitrogen 15 MG/DL Creatinine 0.45 MG/DL Random Glucose 109 MG/DL Calcium Level 8.7 MG/DL Magnesium Level 1.9 MG/DL Sodium Level 137 MEQ/L Potassium Level 4.0 MEQ/L Chloride Level 104 MEQ/L Carbon Dioxide Level 25.6 MEQ/L Anion Gap 7 MEQ/L Estimat Glomerular Filtration Rate 134 ML/MIN Culture Results Microbiology Date/Time Source Procedure Growth Status 03/25/17 21:46 Blood Peripheral Aerobic Blood Culture - Preliminary NO GROWTH IN 3 DAYS Resulted 03/25/17 21:46 Blood Peripheral Anaerobic Blood Culture - Preliminary NO GROWTH IN 3 DAYS Resulted 03/25/17 21:42 Blood Peripheral Aerobic Blood Culture - Preliminary NO GROWTH IN 3 DAYS Resulted 03/25/17 21:42 Blood Peripheral Anaerobic Blood Culture - Preliminary NO GROWTH IN 3 DAYS Resulted Administered Medications Medications (Trade) Dose Ordered Sig/David Route PRN Reason Start Time Stop Time Status Last Admin Dose Admin Sodium Chloride (NS Flush) 2 ml UNSCH PRN IVF FLUSH AFTER USING IV ACCESS 03/23/17 09:00 03/23/17 11:07 Sodium Chloride (NS Flush) 2 ml BID IV FLUSH 03/23/17 21:00 03/28/17 08:57 Acetaminophen (Tylenol) 650 mg Q4H PRN PO TEMP > 100.4 03/23/17 11:00 03/25/17 19:47 Senna/Docusate Sodium (Eugenia-Colace) 1 tab BID PO 03/23/17 21:00 03/28/17 08:48 Albuterol/ Ipratropium (Duoneb Neb) 1 ampule Q2HR NEB PRN NEB Dyspnea 03/25/17 09:45 03/25/17 21:09 Miscellaneous (Pill Splitter) 1 ea UNSCH PRN OTHER SEE LABEL COMMENTS 03/25/17 10:15 03/27/17 09:30 Multi-Ingredient Mouthwash/Gargle (Magic Mouthwash Adult Liq) 5 ml QID SWISH-SWAL 03/25/17 18:00 03/28/17 12:51 Pantoprazole Sodium (Protonix) 40 mg DAILY PO 03/25/17 21:15 03/28/17 08:48 Enoxaparin Sodium (Lovenox Inj) 60 mg Q12H SQ 03/26/17 15:00 03/28/17 04:00 Alprazolam (Xanax) 0.25 mg Q6H PRN PO Anxiety 03/27/17 15:45 03/28/17 08:57 Propranolol HCl (Inderal) 10 mg Q12HR PO 03/27/17 11:15 03/28/17 08:48 Objective Remarks GENERAL: Well-nourished, well-developed patient. SKIN: Warm and dry. HEAD: Normocephalic. EYES: No scleral icterus. No injection or drainage. NECK: Supple, trachea midline. LYMPHATIC: No adenopathy. CARDIOVASCULAR: Regular rate and rhythm without murmurs. RESPIRATORY: Breath sounds equal bilaterally. No accessory muscle use. GASTROINTESTINAL: Abdomen soft, non-tender, nondistended. EXTREMITIES: No cyanosis, or edema. MUSCULOSKELETAL: Adequate muscle tone. NEUROLOGICAL: No obvious focal deficit. Awake, alert, and oriented x3. PSYCHIATRIC: Appropriate mood and affect; insight and judgment normal. Assessment/Plan Assessment 1. 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 Calvillo's office Platelet count of 540K , hemoglboin of 13.8, WBC of 9.6 with an ANC of 6.9. CBC from 02/16/2017 with WBC of 10.7, hemoglobin of 13.5 and platelet count of 545K. She was seen on 03/20/2017 after a change in vision thought to be an TIA. Aspirin dose was increased from 81 mg to 325 mg. Hydroxyurea was increased from one pill to two pills daily. During admission counts decreased with platelet count jose of 104K. Hydrea influencing counts as well as ? viral illness (fatigue, weakness, rhabdo on admission) Counts uptrending. Will continue to hold hydrea. 2. PE: Currently on lovenox. While she is on full intensity anticoagulation will hold aspirin. In this setting feel that the bleeding risk anti platelet therapy in combination with full intensity anticoagulation would be too high. Discussed risks vs benefits of coumadin vs apixaban vs rivaroxban. Patient has decided to proceed with anticoagulation with apixaban on discharge. Dose will be apixaban 10 mg PO BID x 7 days followed by 5 mg PO BID. She will need at minimum 3 months of anticoagulation and may need indefinite therapy. (when ready to transition anticoagulants lovenox will be stopped and apixaban will be given when the next dose of lovenox is due) Carla Vazquez MD Mar 28, 2017 14:49
[2017-03-28] MEDS ORDERED: APIX5TAB PO (15:00)
--- NOTE | 2017-03-28 15:08 | HHI.DCPOC ---
Discharge Care Plan Diagnosis: (1) Amaurosis fugax of left eye (2) Pulmonary embolus (3) SIRS (systemic inflammatory response syndrome) (4) Kinetic tremor (5) Anxiety (6) Weakness (7) Rhabdomyolysis Goals to Promote Your Health * To prevent worsening of your condition and complications * To maintain your health at the optimal level Directions to Meet Your Goals Take your medications as prescribed Follow your dietary instruction Follow activity as directed Keep your appointments as scheduled Take your immunizations and boosters as scheduled If your symptoms worsen call your PCP, if no PCP go to Urgent Care Center or Emergency Room Smoking is Dangerous to Your Health. Avoid second hand smoke Call the 24-hour hour crisis hotline for domestic abuse at Nathan Berg DO Mar 28, 2017 15:08
--- NOTE | 2017-03-28 15:11 | HHI.DS ---
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 fib and bone marrow cancer who is presenting to the hospital with weakness. She says on Sunday she had a follow-up appointment with her air traffic control manager. She mentioned that she had episodes of her left eye vision being obstructed by something that looked like a nicolas cloud at times. She was referred to an eye doctor was concerned for a TIA and recommended the patient follow up with her hearings reporter. The patient did follow up with her oncologist who recommended changing her from a baby aspirin to a full strength aspirin. He also increased the frequency of her hydroxyurea. Starting on Sunday she developed symptoms of weakness. She said she has been having the shakes. She says her legs feel like iron. She has noticed tremors in her upper extremities which she has not had before. She has been sweating profusely. She had an episode of nausea and vomiting. She says she had a fever of 103. She denied any chest pain or shortness of breath. She said she was having difficulty dressing herself. She did state that she fell down because she was so weak. She says she did not hit her head. She said it took a lot for her to get back up. Her daughter was concerned and called the fire department. CBC/BMP: 03/28/1733 03/28/17 0733 Significant Findings Laboratory Tests Test 03/25/17 20:13 03/26/17 06:48 03/27/17 07:10 03/28/17 07:33 White Blood Count 2.8 TH/MM3 (4.0-11.0) Platelet Count 104 TH/MM3 (150-450) 123 TH/MM3 (150-450) 149 TH/MM3 (150-450) Neutrophils (%) (Auto) 83.1 % (16.0-70.0) Lymphocytes # (Auto) 0.4 TH/MM3 (1.0-4.8) Creatinine 0.46 MG/DL (0.50-1.00) 0.45 MG/DL (0.50-1.00) Random Glucose 145 MG/DL (74-106) 112 MG/DL (74-106) 109 MG/DL (74-106) Total Protein 4.6 GM/DL (6.4-8.2) Albumin 2.2 GM/DL (3.4-5.0) Calcium Level 7.7 MG/DL (8.5-10.1) Aspartate Amino Transf (AST/SGOT) 63 U/L (15-37) Direct Bilirubin 0.3 MG/DL (0.0-0.2) Potassium Level 3.4 MEQ/L (3.5-5.1) 3.3 MEQ/L (3.5-5.1) Carbon Dioxide Level 20.7 MEQ/L (21.0-32.0) Iron Level 30 MCG/DL (50-170) Total Iron Binding Capacity 175 MCG/DL (250-450) Percent Iron Saturation 17.1 % (20-50) Ferritin 2976 NG/ML (8-252) Total Creatine Kinase 940 U/L (26-192) 356 U/L (26-192) Creatine Kinase MB 4.7 NG/ML (0.5-3.6) 5.6 NG/ML (0.5-3.6) Folate 19.9 NG/ML (3.1-17.5) Red Blood Count 3.88 MIL/MM3 (4.00-5.30) 3.57 MIL/MM3 (4.00-5.30) Hematocrit 33.8 % (35.0-46.0) 32.0 % (35.0-46.0) Mean Platelet Volume 11.5 FL (7.0-11.0) 11.9 FL (7.0-11.0) Hemoglobin 11.4 GM/DL (11.6-15.3) Imaging Last Impressions Lower Extremity Ultrasound 03/25/17 Signed Impressions: Service Date/Time: Saturday, March 25, 2017 22:01 - CONCLUSION: Normal examination. Jorge Reynaga MD Head Magnetic Resonance Angiography 03/25/17 Signed Impressions: Service Date/Time: Saturday, March 25, 2017 15:08 - CONCLUSION: No acute [place] of [place] vascular findings. Jorge Reynaga MD Chest X-Ray 03/25/17 Signed Impressions: Service Date/Time: Saturday, March 25, 2017 09:15 - CONCLUSION: 1. Chronic appearing interstitial changes. Stable examination compared to previous dated 03/23/17. Mart Farrell MD CT Angiography 03/25/17 Signed Impressions: Service Date/Time: Sunday, March 26, 2017 01:35 - CONCLUSION: Relatively low volume pulmonary embolism. Mild bilateral dependent lung atelectasis and small effusions. Mild nonspecific prominence of hilar and mediastinal nodes. Jorge Reynaga MD Carotid Artery Ultrasound 03/24/17 Signed Impressions: Service Date/Time: Friday, March 24, 2017 10:31 - CONCLUSION: No evidence of flow-limiting carotid stenosis. Jorge Reynaga MD Brain MRI 03/24/17 Signed Impressions: Service Date/Time: Friday, March 24, 2017 11:35 - CONCLUSION: 1. No acute intracranial abnormality identified. Mart Farrell MD Head CT 03/23/17 0856 Signed Impressions: Service Date/Time: Thursday, March 23, 2017 09:28 - CONCLUSION: Normal examination. Jorge Reynaga MD PE at Discharge GENERAL: This is a well-nourished, well-developed patient, in no apparent distress. SKIN: No rashes, ecchymoses or lesions. Cool and dry. HEAD: Atraumatic. Normocephalic. No temporal or scalp tenderness. EYES: Pupils equal round and reactive. Extraocular motions intact. No scleral icterus. No injection or drainage. ENT: Nose without bleeding, purulent drainage or septal hematoma. Throat without erythema, tonsillar hypertrophy or exudate. Uvula midline. Airway patent. NECK: Trachea midline. No JVD or lymphadenopathy. Supple, nontender, no meningeal signs. No carotid bruits appreciated. CARDIOVASCULAR: Regular rate and rhythm without murmurs, gallops, or rubs. RESPIRATORY: Clear to auscultation. Breath sounds equal bilaterally. No wheezes , rales, or rhonchi. GASTROINTESTINAL: Abdomen soft, non-tender, nondistended. No hepato-splenomegaly , or palpable masses. No guarding. MUSCULOSKELETAL: Extremities without clubbing, cyanosis, or edema. Right calf tender to palpation. NEUROLOGICAL: Awake and alert. Cranial nerves II through XII intact. Motor and sensory grossly within normal limits. Five out of 5 muscle strength in all muscle groups. Normal speech. PSYCH: Mood and affect appropriate. Hospital Course Weakness/ hypokalemia/ rhabdomyolysis/ UTI The patient endorsed significant lower extremity weakness along with a new tremor. She did have a potassium level of 2.8 on admission. She also had an elevated CPK level. CT of the brain was unremarkable. She worked with PT and OT. We repleted electrolytes as needed. She was placed on neuro checks. We started IVFs and her CPK level trended down. We monitored the pt on telemetry. Antibiotics were discontinued per ID. Blood cultures with no growth. Case management was consulted. She will be discharged to a detention facility. Leukopenia/ Thrombocytopenia Hydroxyurea has been discontinued. Her counts improved. She will follow up with hematology as an outpt. FUO The pt was spiking fevers. CXR unremarkable. ID was consulted. UA unremarkable. PE found on CTA. Antibiotics d/c per ID. The pt has been afebrile. PE Noted on CTA. Hematology was consulted. Lovenox was started. Will d/c on Eliquis per discussion with the patient and hematology. Vision changes/ Weakness The patient says she had a cloudy spot on her left eye. She went to an eye doctor who she says was concerned about a TIA. CT head was unremarkable. The patient's visual symptoms have resolved. She still has weakness. MRI brain and carotid US unremarkable. Neuro was consulted. Echo with normal EF. Ophthalmology evaluated pt 03/28 and thought symptoms were consistent with amaurosis fugax. She will continue Eliquis. Prednisone was discontinued. 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 She said that she is on hydroxyurea and that her dose was recently doubled. D/c hydroxyurea as above. Oncology follow up as outpt. Pt Condition on Discharge: Stable Discharge Disposition: Discharge to SNF Discharge Time: > 30 minutes Discharge Instructions DIET: Follow Instructions for: As Tolerated, No Restrictions Activities you can perform: Weight Bearing as Jeevan Follow up Referrals: Neurology - 2 Weeks with Angel Levy MD Ophthalmology - 1 Week PCP Follow-up - 1 Week SNF[facility]/ with [facility] New Medications: Apixaban (Eliquis) 5 Mg Tab 5 MG PO BID for Blood Clot Prevention, #60 TAB 0 Refills Start this dosing regimen after completing one week of 10 mg twice daily Apixaban (Eliquis) 5 Mg Tab 10 MG PO BID for Blood Clot Prevention, #14 TAB 0 Refills Alprazolam (Xanax) 0.25 Mg Tab 0.25 MG PO Q6H PRN for Anxiety, #12 TAB Propranolol (Propranolol) 10 Mg Tab 10 MG PO Q12HR for Tremors, #60 TAB Discontinued Medications: Aspirin (Aspirin) 81 Mg Chew 81 MG CHEW DAILY, TAB 0 Refills Hydroxyurea (Hydrea) 500 Mg Cap 500 MG PO BID, CAP 0 Refills Nathan Berg DO Mar 28, 2017 15:11
[2017-03-28 16:00] VITALS: BP 134/61; PULSE 82; RESP 19; TEMP 96.9; O2SAT 94
[2017-03-28] MEDS ORDERED: BISACODYL EC 5 MG TABEC PO ONE (16:45)
[2017-03-28 19:51] LABS: THROMBIN TIME FOR LA 17 sec (13-19)
== END 2017-03-28 18:33 | DRG 557 ==
LOC: NEPC 08:39 → NEDA 10:56 → N07A 14:14
PROVIDERS: ADMIT Hospitalist; ATTEND Hospitalist
DX: M62.82 Rhabdomyolysis (principal); I26.99 Other pulmonary embolism without acute cor pulmonale; D61.818 Other pancytopenia; C96.9 Malignant neoplasm of lymphoid, hematopoietic and related tissue, unspecified; R65.10 Systemic inflammatory response syndrome (SIRS) of non-infectious origin without acute organ dysfunction; G45.9 Transient cerebral ischemic attack, unspecified; G45.3 Amaurosis fugax; R25.1 Tremor, unspecified; F41.9 Anxiety disorder, unspecified; E87.6 Hypokalemia; E83.51 Hypocalcemia; Z79.82 Long term (current) use of aspirin; K12.30 Oral mucositis (ulcerative), unspecified; R00.0 Tachycardia, unspecified
CPT/HCPCS: 70450; 70544; 70551; 71010; 71275; 76937; 80048; 80053; 80076; 81001; 82550; 82552; 82607; 82728; 82746; 83010; 83540; 83550; 83735; 84100; 84443; 84484; 85025; 85027; 85060; 85597; 85598; 85610; 85613; 85652; 85670; 85730; 86038; 86140; 86430; 87040; 87081; 87086; 87804; 87880; 93005; 93306; 93880; 93971; 94664; J0696; J1650; J2543; J2930; J3370; J3480; J7030; J7050; J7512; Q9967